=== PATIENT | female | born 1990 | race Caucasian/White ===

== ENCOUNTER 2017-01-09 16:43 | Inpatient (IN) | payer OTHER ==
[~2017-01-09] VITALS: Ht 180.3 cm; Wt 83.0 kg
[~2017-01-09 16:43] MED LIST: SETLAKIN 0.151 EACH PO
[2017-01-09] MEDS ORDERED: ALPRAZOLAM0.5 MG PO (17:01)
[2017-01-09] MEDS ORDERED: VENLAFAXINE HCL75 M1 PO (17:01)
[2017-01-09] MEDS ORDERED: MULTIVITAMINS1 EAC7 PO (17:02)
--- NOTE | 2017-01-09 20:53 | NUR ---
PT ADMITTED FROM ED AT 1950 PER STRETCHER. ABLE TO STAND AND MOVE FROM STRETCHER TO BED. STATES NO DIZZYNESS. DENIES ANY DISCOMFORT. AMB TO BR AT ABOUT 2030 TO VOID 180ML URINE. HR UP TO 120'S WITH AMB. BOYFRIEND IN ROOM. DR ROCHE AWARE OF INC IN HR WITH AMB. DURING ADMISSION PT ADMITTED TO DRINKING 5-7 OR MORE DRINKS OF VODKA 4-5 TIMES PER WEEK. ADIVED PT THAT DRINKING LIKE THAT COULD DECREASE MAGNESIUM LEVEL AND ALSO COULD INTERACT WITH EFFEXOR.
--- NOTE | 2017-01-09 23:37 | NUR ---
GIVEN PO KCL WITH CRACKERS, PT JULIETTE WELL AND GIVEN SANDWICH BOX. AMB TO BR HR UP TO 119 WITH AMB, PT STATES SHE IS FEELING BETTER EVEN WHEN UP.
--- NOTE | 2017-01-10 01:26 | NUR ---
RESTING. BOYFRIEND AT BEDSIDE.
--- NOTE | 2017-01-10 02:39 | NUR ---
HAS NOT SLEPT, CONT TO HAVE RIVERA 6/10 GIVEN 500MG TYLENOL. AMB TO BR, HR TO 103 WHILE UP.
--- NOTE | 2017-01-10 04:38 | NUR ---
DOZING SOME, AWAKENED WHEN IV PUMP ALARMED. NO C/O.
--- NOTE | 2017-01-10 06:26 | NUR ---
RESTING NO CHANGE.
--- NOTE | 2017-01-10 06:47 | NUR ---
AMB TO BR TO VOID, JULIETTE WELL EXCEPT STILL BECOMES TACHYCARDIC WITH AMBULATION UP TO 120. IS HUNGRY, GIVEN MENU.
--- NOTE | 2017-01-10 08:17 | NUR ---
BEDSIDE REPORT RECEIVED FROM QUINCY LOMAS. PT RESTING, SITTING UP IN BED UPON INITIAL ASSESSMENT. PT'S SIGNIFICANT OTHER AT BEDSIDE. PT REPORTS THAT SHE IS FEELING MUCH BETTER COMPARED TO YESTERDAY. PT HAS BEEN VOIDING QUANTITY SUFFICIENT AMOUNTS AND NOTES THAT SHE NEEDS TO GET UP SOON TO VOID AGAIN. ORTHOSTATIC VITAL SIGNS DUE BID. IVF CONTINUE AT 125 ML/HR. ASSESSMENT COMPLETE. PT'S BP NOTED TO BE ELEVATED THIS AM WITH A DIASTOLIC OF 105 AND 108. WILL CONTINUE TO MONITOR.
--- NOTE | 2017-01-10 10:07 | NUR ---
AMBULATED TO BR. DENIES DIZZINESS.
--- NOTE | 2017-01-10 10:15 | NUR ---
MED REC COMPLETE WITH PATIENT AND MOTHER INTERVIEW.
--- NOTE | 2017-01-10 11:47 | NUR ---
DR. ROCHE IN TO SEE PATIENT AT THIS TIME. PT RESTING IN BED.
[2017-01-10] MEDS ORDERED: NICORETTE4 M2 BUCCAL (11:51)
[2017-01-10] MEDS ORDERED: FAMOTIDINE40 MG PO (11:52)
[2017-01-10] MEDS ORDERED: CALCIUM 600 +1 EA13 PO (11:54)
--- NOTE | 2017-01-10 11:57 | NUR ---
PATIENT WILL BE DISCHARGED HOME TODAY WITH A NEW PRESCRIPTION. PATIENT GETTING UP AND GETTING DRESSED AT THIS TIME. CONTINUE TO MONITOR.
[2017-01-10] MEDS ORDERED: METRONIDAZOLE500 MG PO (15:57)
[2017-01-11] MEDS ORDERED: CALCIUM 600 +1 EA13 PO (12:43)
== END 2017-01-10 12:45 | disposition home or self-care (01) | DRG 683 ==
LOC: ED 16:43 → CCU 19:27
PROVIDERS: ADMIT Internal Medicine
DX: N17.9 Acute kidney failure, unspecified (principal); E87.2 Acidosis; N18.2 Chronic kidney disease, stage 2 (mild); E86.0 Dehydration; E83.42 Hypomagnesemia; R11.2 Nausea with vomiting, unspecified; R19.7 Diarrhea, unspecified; E87.6 Hypokalemia; R55 Syncope and collapse; I95.9 Hypotension, unspecified; E87.8 Other disorders of electrolyte and fluid balance, not elsewhere classified; K29.00 Acute gastritis without bleeding; D69.59 Other secondary thrombocytopenia; E80.6 Other disorders of bilirubin metabolism; F32.9 Major depressive disorder, single episode, unspecified; F41.9 Anxiety disorder, unspecified; F10.10 Alcohol abuse, uncomplicated; F17.210 Nicotine dependence, cigarettes, uncomplicated; Z60.8 Other problems related to social environment
CPT/HCPCS: 36415; 80053; 82010; 82306; 82570; 82607; 82746; 82784; 83516; 83630; 83735; 83993; 84133; 84300; 84302; 84703; 85025; 87045; 87046; 87177; 87205; 87209; 87493; 96361; 96365; 96366; 96375; 99285; 99406; J2405; J3475; J3480; J7030; J7120

== ENCOUNTER 2018-09-24 17:14 | Emergency (ER) | payer OTHER ==
[~2018-09-24] VITALS: Ht 180.3 cm; Wt 83.0 kg
--- OUTSIDE RECORDS SUMMARY | ~2018-09-24 | XMS | Clinical Summary ---
Demographics + + + | Address | [address] | | | [place] [address] | + + + | Home Phone | | + + + | Preferred Language | Unknown | + + + | Marital Status | Unknown | + + + | Latter Day Affiliation | Unknown | + + + | Race | Unknown | + + + | Ethnic Group | Unknown | + + + Author + + + | Author | [facility] | | | and [place] | + + + | Organization | [facility] | | | and [place] | + + + | Address | Unknown | + + + | Phone | Unavailable | + + + Support + + +---------+ + | Name | Relationship | Address | Phone | + + +---------+ + | Michael Ware Jr | ECON | Unknown | | + + +---------+ + | NéstorRobyn | ECON | Unknown | | + + +---------+ + Care Team Providers + +------+ + | Care Senior Mechanical Design Engineer Name | Role | Phone | + +------+ + | Abdiel Owens DO | PP | Unavailable | + +------+ + Allergies No Known [...] | 12/2 | | Activ | | (KLOR-CON) 10 [...] + +---------+ + | Alcohol Use | Drinks/We | oz/Week | Comments | | | ek | | | + + +---------+ + | Yes [...] Filed Vital Signs + + + + | Vital Sign | Reading | Time Taken | + + + + | Blood Pressure | 147/99 | 04/26/20172099 PST | + + + + | Pulse | 105 | 04/26/20172099 PST | + + + + | Temperature | 36.1 C (97 F) | 04/26/2017 1543 PST | + + + + | Respiratory Rate | 18 | 04/26/20172099 PST | + + + + | Oxygen Saturation | 99% | 04/26/2017 2100 PST | + + + + | Inhaled Oxygen | - | - | | Concentration | | | + + + + | Weight | 80.5 kg (177 lb 7.5 | 04/24/2017 0115 PST | | | oz) | | + + + + | Height | 167.6 cm (5' 6") | 04/23/20172249 PST | + + + + | Body Mass Index | 28.64 | 04/23/20172249 PST | + + + + Plan of Treatment [...] Vaccine: Influenza | | | | | (Season Ended) | 9 | | | + + [...] | | + +--------+ +--------+ +---------+------+ | [facility] | PHP | [phone] | 04/30/19 | [phone] | | PPO | | PLAN | PERSON | | 16-Pre | 5 | | | | | [place] | | sent | | | | | | OPEN | | | | | | | | OPTION | | | | | | + +--------+ +--------+ +---------+------+ | [facility] | PHP | [phone] | 04/30/19 | [phone] | | PPO | | PLAN | [...] +--------+ + + | Candis Palm | Person | Self | [birth year] | [address] | | [place]wetha | francisco/Oscar | | 1990 | [id number] | [place] [address] | | | brianna | | | 9 (Home) | | + +--------+ +--------+ + + Advance Directives Patient has advance care planning documents, and code status on file. For more information, please contact:[facility] and [place] [address] + + + + + | Code Status | Date | Date | Comments | | | Activated | Inactivated | | + + + + + | Full Code | 04/24/2017 | 04/26/2017 | | | | 1:17 | 23:44 | | + + + + +
--- OUTSIDE RECORDS SUMMARY | ~2018-09-24 | XMS | Clinical Summary ---
Demographics + + + | Address | [address] | | | [place] [address] | + + + | Home Phone | | + + + | Preferred Language | Unknown | + + + | Marital Status | Unknown | + + + | Mormon Affiliation | Unknown | + + + | Race | Unknown | + + + | Ethnic Group | Unknown | + + + Author + + + | Author | [facility] | | | and [place] | + + + | Organization | [facility] | | | and [place] [...] Team Providers + +------+ + | Care Nicker Name | Role | Phone | + [...] +---------+------+ | [facility] | PHP | [phone] | 04/30/19 | [phone] | | PPO | | PLAN | PERSON | | 16-Pre | 5 | | | | | [place] | | sent | | | | | | OPEN | | | | | | | | OPTION | | | | | | + +--------+ +--------+ +---------+------+ | [facility] | PHP | [phone] | 04/30/19 | [phone] | | PPO | | PLAN | [...] | 1990 | [id number] | [place] [address] | | | [place]anna | | | 9 (Home) | | + +--------+ +--------+ + + Advance Directives Patient has advance care planning documents, and code status on file. For more information, please contact:[facility] and [place] [address] + + + + + | Code Status | Date | Date | Comments | | | Activated | Inactivated | | + + + + + | Full Code | 04/24/2017 | 04/26/2017 | | | | 1:17 | 23:44 | | + + + + +
[~2018-09-24 17:14] MED LIST changes: +ALPRAZOLAM0.5 MG PO; +CALCIUM 600 +1 EA13 PO; +FAMOTIDINE40 MG PO; +METRONIDAZOLE500 MG PO; +MULTIVITAMINS1 EAC7 PO; +NICORETTE4 M2 BUCCAL; +VENLAFAXINE HCL75 M1 PO
[2018-09-24] MEDS ORDERED: COZAAR25 MG PO (17:27)
[2018-09-24] MEDS ORDERED: K-TAB ER20 MEQ PO (17:27)
--- NOTE | 2018-09-25 16:17 | EKG ---
[facility] [address] [facility] [place], [place] [address] Signed Sinus tachycardia Otherwise normal ECG No previous ECGs available Confirmed by JYOTI AVILA MD ([id number]) on 09/25/2018 4:17:30 PM Electronically Signed By: JYOTI AVILA MD 09/25/18 1617 PATIENT NAME: JULES BRITO Electrocardiogram DATE OF : [birth year] PHYSICIAN: JYOTI AVILA MD REPORT #: [id number] REPORT IS CONFIDENTIAL AND NOT TO BE RELEASED WITHOUT AUTHORIZATION
== END 2018-09-24 23:22 | disposition home or self-care (01) ==
LOC: ED 17:14
DX: E86.0 Dehydration (principal); F10.20 Alcohol dependence, uncomplicated; F17.200 Nicotine dependence, unspecified, uncomplicated; Z79.899 Other long term (current) drug therapy
CPT/HCPCS: 80053; 81001; 83690; 83735; 84703; 85025; 93005; 93010; 96365; 96375; 96376; 99283-25; G0480; J2060; J3411; J3475; J7030

== ENCOUNTER → 2019-03-04 | Emergency (ER) | payer OTHER ==
[~2019-03-04] VITALS: Ht 180.3 cm; Wt 74.8 kg
[~2019-03-04] MED LIST changes: +CITALOPRAM HBR10 MG PO; +COZAAR25 MG PO; +K-TAB ER20 MEQ PO; +MAGNESIUM200 MG PO; +XANAX0.5 MG PO
--- OUTSIDE RECORDS SUMMARY | ~2019-03-04 | XMS | Clinical Summary ---
Demographics + + + | Address | [address] | | | [place] [address] | + + + | Home Phone | | + + + | Preferred Language | Unknown | + + + | Marital Status | Unknown | + + + | Denominational Affiliation | Unknown | + + + | Race | Unknown | + + + | Ethnic Group | Unknown | + + + Author + + + | Author | [facility] | | | and [place] | + + + | Organization | [facility] | | | and [place] [...] Team Providers + +------+ + | Care Calibration Technician Name | Role | Phone | + +------+ + | Abdiel Owens DO | PCP | Unavailable | + +------+ + Allergies [...] +---------+------+ | [facility] | PHP | [phone] | 04/30/19 | [phone] | | PPO | | PLAN | PERSON | | 16-Pre | 5 | | | | | [place] | | sent | | | | | | OPEN | | | | | | | | OPTION | | | | | | + +--------+ +--------+ +---------+------+ | [facility] | PHP | [phone] | 04/30/19 | [phone] | | PPO | | PLAN | [...] | 1990 | [id number] | [place] [address] | | | [place] | | | 9 (Home) | | + +--------+ +--------+ + + Advance Directives Patient has advance care planning documents, and code status on file. For more information, please contact:[facility] [address] and [place] [address] + + + + + | Code Status | Date | Date | Comments | | | Activated | Inactivated | | + + + + + | Full Code | 04/24/2017 | 04/26/2017 | | | | 1:17 | 23:44 | | + + + + +
--- OUTSIDE RECORDS SUMMARY | ~2019-03-04 | XMS | Clinical Summary ---
Demographics + + + | Address | [address] | | | [place] [address] | + + + | Home Phone | | + + + | Preferred Language | Unknown | + + + | Marital Status | Unknown | + + + | Religion Affiliation | Unknown | + + + | Race | Unknown | + + + | Ethnic Group | Unknown | + + + Author + + + | Author | [facility] | | | and [place] | + + + | Organization | [facility] | | | and [place] [...] Team Providers + +------+ + | Care Materials Intern Name | Role | Phone | + [...] +---------+------+ | [facility] | PHP | [phone] | 04/30/19 | [phone] | | PPO | | PLAN | PERSON | | 16-Pre | 5 | | | | | [place] | | sent | | | | | | OPEN | | | | | | | | OPTION | | | | | | + +--------+ +--------+ +---------+------+ | [facility] | PHP | [phone] | 04/30/19 | [phone] | | PPO | | PLAN | [...] | 1990 | [id number] | [place] [address] | | | [place] | | | 9 (Home) | | + +--------+ +--------+ + + Advance Directives Patient has advance care planning documents, and code status on file. For more information, please contact:[facility] and [place] [address] + + + + + | Code Status | Date | Date | Comments | | | Activated | Inactivated | | + + + + + | Full Code | 04/24/2017 | 04/26/2017 | | | | 1:17 | 23:44 | | + + + + +
--- NOTE | 2019-03-05 16:04 | EKG ---
[facility] [address] [facility] [place], [place] [address] Signed Sinus tachycardia Otherwise normal ECG When compared with ECG of 24-SEP-2018 17:23, No significant change was found Confirmed by KARINA LOUIS DO ([id number]) on 03/05/2019 4:04:51 PM Electronically Signed By: KARINA LOUIS DO 03/05/19 1604 PATIENT NAME: JULES BRITO Electrocardiogram DATE OF : [birth year] PHYSICIAN: KARINA LOUIS DO REPORT #: [id number] REPORT IS CONFIDENTIAL AND NOT TO BE RELEASED WITHOUT AUTHORIZATION
== END ==
LOC: ED 21:10
DX: E83.42 Hypomagnesemia (principal); F17.200 Nicotine dependence, unspecified, uncomplicated; Z79.899 Other long term (current) drug therapy
CPT/HCPCS: 80053; 81001; 83735; 84703; 85025; 93005; 93010; 96374; 96375; 96376; 99284-25; G0480; J2060; J2405; J2550; J3475; J7030

== ENCOUNTER 2019-03-29 16:18 | Inpatient (IN) | payer OTHER ==
[~2019-03-29] VITALS: Ht 182.9 cm; Wt 79.4 kg
--- OUTSIDE RECORDS SUMMARY | ~2019-03-29 | XMS | Encounter Summary ---
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 ECGNo previous ECGs | | | | | | availableConfirmed by | | | | | | EDUARDO REINOSO, JOVITA ([id number]) | | | | | | on 04/24/2017 7:05:15 AM | | | | | | | | | | + + + + + + + + | Specimen | + + | | + + + + + | Narrative | Performed At | + + + | | | + + + + +---------+ + + | Performing | Address | City/State/Zipcode | Phone Number | | Organization | | | | + +---------+ + + | [facility] | | | | + +---------+ + + Extra Blue Top Tube (04/23/2017 11:07 PM PST) + +-------+ + + + | Component | Value | Ref Range | Performed | Pathologist | | | | | At | Signature | + +-------+ + + + | Extra Blue | Done | | [facility] | | | Top Tube | | | [facility] | | | | | | [facility] | | | | | | CENTER - | | | | | | LABORATORY | | + +-------+ + + + + + | Specimen | + + | Blood | + + + + + + + | Performing | Address | City/State/Zipcode | Phone Number | | Organization | | | | + + + + + | [facility] | [address] | [place] | [phone] | | [facility] | | [address] | | | - LABORATORY | | | | + + + + + Extra Green Top Tube (04/23/2017 11:07 PM PST) + +-------+ + + + | Component | Value | Ref Range | Performed | Pathologist | | | | | At | Signature | + +-------+ + + + | Extra Green | Done | | [facility] | | | Top Tube | | | [facility] | | | | | [facility] | | | | | | CENTER - | | | | | | LABORATORY | | + +-------+ + + + + + | Specimen | + + | Blood | + + + + + + + | Performing | Address | City/State/Zipcode | Phone Number | | Organization | | | | + + + + + | [facility] | [address] | [place] | [phone] | | [facility] | | [address] | | | - LABORATORY | | | | + + + + + , Serum, Qual (04/23/2017 11:07 PM PST) + + + + + + | Component | Value | Ref Range | Performed | Pathologist | | | | | At | Signature | + + + + + + | hCG Screen, | Negative | Negative | [facility] | | | Serum | | | [facility] | | | | | | MEDICAL | | | | | | CENTER - | | | | | | LABORATORY | | + + + + + + + + | Specimen | + + | Blood | + + + + + + + | Performing | Address | City/State/Zipcode | Phone Number | | Organization | | | | + + + + + | [facility] | [address] | [place] | [phone] | | [facility] | | [address] | | | - LABORATORY | | | | + + + + + Magnesium (04/23/2017 11:07 PM PST) + +---------+ + + + | Component | Value | Ref Range | Performed | Pathologist | | | | | At | Signature | + +---------+ + + + | Magnesium | 0.5 (L) | 1.8 - 2.5 mg/dL | [facility] | | | | | | [facility] | | | | | | MEDICAL | | | | | | CENTER - | | | | | | LABORATORY | | + +---------+ + + + + + | Specimen | + + | Blood | + + + + + + + | Performing | Address | City/State/Zipcode | Phone Number | | Organization | | | | + + + + + | [facility] | [address] | [place] | [phone] | | [facility] | | [address] | | | - LABORATORY | | | | + + + + + Ethanol (04/23/2017 11:07 PM PST) + +-------+ + + + | Component | Value | Ref Range | Performed | Pathologist | | | | | At | Signature | + +-------+ + + + | ALCOHOL, | <5 | <400 mg/dL | [facility] | | | SERUM/PLASM | | | [facility] | | | A | | | MEDICAL | | | | | | CENTER - | | | | | | LABORATORY | | + +-------+ + + + + + | Specimen | + + | Blood | + + + + + + + | Performing | Address | City/State/Zipcode | Phone Number | | Organization | | | | + + + + + | [facility] | [address] | [place] | [phone] | | [facility] | | [address] | | | - LABORATORY | | | | + + + + + Lipase (04/23/2017 11:07 PM PST) + +-------+ + + + | Component | Value | Ref Range | Performed | Pathologist | | | | | At | Signature | + +-------+ + + + | Lipase | 32 | 0 - 60 U/L | [facility] | | | | | | [facility] | | | | | | MEDICAL | | | | | | CENTER - | | | | | | LABORATORY | | + +-------+ + + + + + | Specimen | + + | Blood | + + + + + + + | Performing | Address | City/State/Zipcode | Phone Number | | Organization | | | | + + + + + | [facility] | [address] | [place] | [phone] | | [facility] | | [address] | | | - LABORATORY | | | | + + + + + Comprehensive Metabolic Panel (04/23/2017 11:07 PM PST) + + + + + + | Component | Value | Ref Range | Performed | Pathologist | | | | | At | Signature | + + + + + + | Na | 132 (L) | 136 - 149 | [facility] | | | | | mmol/L | [facility] | | | | | | MEDICAL | | | | | | CENTER - | | | | | | LABORATORY | | + + + + + + | K | 2.1 (LL)Comment: | 3.5 - 5.1 | [facility] | | | | Critical Result called | mmol/L | [facility] | | | | to and read back by | | MEDICAL | | | | Samira Chandler on | | CENTER - | | | | 04/23/2017 at 23:32 by | | LABORATORY | | | | Mary Lemus. | | | | + + + + + + | Cl | 90 (L) | 98 - 109 mmol/L | [facility] | | | | | | [facility] | | | | | | MEDICAL | | | | | | CENTER - | | | | | | LABORATORY | | + + + + + + | CO2 | 26 | 24 - 31 mmol/L | [facility] | | | | | | [facility] | | | | | | MEDICAL | | | | | | CENTER - | | | | | | LABORATORY | | + + + + + + | Anion Gap | 16 | 3 - 16 mmol/L | [facility] | | | | | | [facility] | | | | | | MEDICAL | | | | | | CENTER - | | | | | | LABORATORY | | + + + + + + | Glucose | 86 | 70 - 109 mg/dL | [facility] | | | | | | [facility] | | | | | | MEDICAL | | | | | | CENTER - | | | | | | LABORATORY | | + + + + + + | BUN | 5 (L) | 7 - 18 mg/dL | [facility] | | | | | | [facility] | | | | | | MEDICAL | | | | | | CENTER - | | | | | | LABORATORY | | + + + + + + | Creatinine | 0.82 | 0.60 - 1.30 | [facility] | | | | | mg/dL | [facility] | | | | | | MEDICAL | | | | | | CENTER - | | | | | | LABORATORY | | + + + + + + | eGFR if not | >60Comment: GLOMERULAR | >=60 | [facility] | | | | FILTR[facility] | mL/min/1.73m2 | [facility] | | | [place] | RATE,ESTIMATED | | MEDICAL | | | | mL/min/1.77z3Mxhs than | | CENTER - | | | | 60 Chronic kidney | | LABORATORY | | | | disease,if found over a | | | | | | 3-month period.Less than | | | | | | 15 Kidney failureFor | | | | | | | | | | | | Americans,multiply the | | | | | | calculated GFR by 1.21. | | | | | | | | | | + + + + + + | Calcium | 6.8 (L) | 8.3 - 10.5 | [facility] | | | | | mg/dL | [facility] | | | | | | MEDICAL | | | | | | CENTER - | | | | | | LABORATORY | | + + + + + + | Albumin | 3.7 | 3.2 - 5.0 g/dL | [facility] | | | | | | [facility] | | | | | | MEDICAL | | | | | | CENTER - | | | | | | LABORATORY | | + + + + + + | Bilirubin | 1.3Comment: This is an | 0.1 - 1.5 mg/dL | [facility] | | | Total | appended report. These | | [facility] | | | | results have been | | MEDICAL | | | | appended to a previously | | CENTER - | | | | preliminary verified | | LABORATORY | | | | report. | | | | + + + + + + | Total | 7.0 | 6.0 - 7.8 g/dL | [facility] | | | Protein | | | [facility] | | | | | | MEDICAL | | | | | | CENTER - | | | | | | LABORATORY | | + + + + + + | AST | 67 (H)Comment: This is | 10 - 42 U/L | [facility] | | | | an appended report. | | [facility] | | | | These results have been | | MEDICAL | | | | appended to a previously | | CENTER - | | | | preliminary verified | | LABORATORY | | | | report. | | | | + + + + + + | ALT | 26Comment: This is an | 6 - 45 U/L | [facility] | | | | appended report. These | | [facility] | | | | results have been | | MEDICAL | | | | appended to a previously | | CENTER - | | | | preliminary verified | | LABORATORY | | | | report. | | | | + + + + + + | Alkaline | 44Comment: This is an | 40 - 110 U/L | [facility] | | | Phosphatase | appended report. These | | [facility] | | | | results have been | | MEDICAL | | | | appended to a previously | | CENTER - | | | | preliminary verified | | LABORATORY | | | | report. | | | | + + + + + + | Globulin | 3.3 | 2.1 - 3.8 g/dL | [facility] | | | | | | [facility] | | | | | | MEDICAL | | | | | | CENTER - | | | | | | LABORATORY | | + + + + + + | Albumin/Radha | 1.1 | 0.8 - 2.0 | [facility] | | | bulin Ratio | | | [facility] | | | | | | MEDICAL | | | | | | CENTER - | | | | | | LABORATORY | | + + + + + + | BUN/Creatin | 6.1 | | [facility] | | | ine Ratio | | | [facility] | | | | | | MEDICAL | | | | | | CENTER - | | | | | | LABORATORY | | + + + + + + + + | Specimen | + + | Blood | + + + + + + + | Performing | Address | City/State/Zipcode | Phone Number | | Organization | | | | + + + + + | [facility] | [address] | [place] | [phone] | | [facility] | | [address] | | | - LABORATORY | | | | + + + + + CBC with Differential (04/23/2017 11:07 PM PST) + + + + + + | Component | Value | Ref Range | Performed | Pathologist | | | | | At | Signature | + + + + + + | WBC | 6.0 | 4.0 - 11.0 K/uL | [facility] | | | | | | [facility] | | | | | | MEDICAL | | | | | | CENTER - | | | | | | LABORATORY | | + + + + + + | RBC | 4.00 | 3.70 - 5.20 | [facility] | | | | | M/uL | [facility] | | | | | | MEDICAL | | | | | | CENTER - | | | | | | LABORATORY | | + + + + + + | Hemoglobin | 13.1 | 11.5 - 16.0 | [facility] | | | | | g/dL | [facility] | | | | | | MEDICAL | | | | | | CENTER - | | | | | | LABORATORY | | + + + + + + | Hematocrit | 38.0 | 34.0 - 47.0 % | [facility] | | | | | | [facility] | | | | | | MEDICAL | | | | | | CENTER - | | | | | | LABORATORY | | + + + + + + | MCV | 95.0 | 83.0 - 101.0 fL | [facility] | | | | | | [facility] | | | | | | [facility] | | | | | | CENTER - | | | | | | LABORATORY | | + + + + + + | MCH | 32.6 | 28.0 - 35.0 pg | [facility] | | | | | | [facility] | | | | | | MEDICAL | | | | | | CENTER - | | | | | | LABORATORY | | + + + + + + | MCHC | 34.3 | 32.0 - 36.0 | [facility] | | | | | g/dL | [facility] | | | | | | MEDICAL | | | | | | CENTER - | | | | | | LABORATORY | | + + + + + + | RDW-CV | 15.3 (H) | <15.0 % | [facility] | | | | | | [facility] | | | | | | MEDICAL | | | | | | CENTER - | | | | | | LABORATORY | | + + + + + + | Platelet | 179 | 140 - 440 K/uL | [facility] | | | Count | | | [facility] | | | | | | MEDICAL | | | | | | CENTER - | | | | | | LABORATORY | | + + + + + + | MPV | 7.3 | fL | [facility] | | | | | | [facility] | | | | | | MEDICAL | | | | | | CENTER - | | | | | | LABORATORY | | + + + + + + | % | 71.9 | 45.0 - 82.0 % | [facility] | | | Neutrophils | | | [facility] | | | | | | MEDICAL | | | | | | CENTER - | | | | | | LABORATORY | | + + + + + + | % | 14.5 (L) | 20.0 - 45.0 % | [facility] | | | Lymphocytes | | | [facility] | | | | | | MEDICAL | | | | | | CENTER - | | | | | | LABORATORY | | + + + + + + | % Monocytes | 13.2 (H) | 4.0 - 12.0 % | [facility] | | | | | | [facility] | | | | | | MEDICAL | | | | | | CENTER - | | | | | | LABORATORY | | + + + + + + | % | 0.1 | 0.0 - 5.0 % | [facility] | | | Eosinophils | | | [facility] | | | | | | MEDICAL | | | | | | CENTER - | | | | | | LABORATORY | | + + + + + + | % Basophils | 0.3 | 0.0 - 1.0 % | [facility] | | | | | | [facility] | | | | | | MEDICAL | | | | | | CENTER - | | | | | | LABORATORY | | + + + + + + | Absolute | 4.30 | 1.80 - 8.50 | [facility] | | | Neutrophils | | K/uL | [facility] | | | | | | MEDICAL | | | | | | CENTER - | | | | | | LABORATORY | | + + + + + + | Absolute | 0.90 | 0.60 - 3.20 | [facility] | | | Lymphocytes | | K/uL | [facility] | | | | | | MEDICAL | | | | | | CENTER - | | | | | | LABORATORY | | + + + + + + | Absolute | 0.80 | 0.00 - 1.00 | [facility] | | | Monocytes | | K/uL | [facility] | | | | | | MEDICAL | | | | | | CENTER - | | | | | | LABORATORY | | + + + + + + | Absolute | 0.00 | 0.00 - 0.40 | [facility] | | | Eosinophils | | K/uL | [facility] | | | | | | MEDICAL | | | | | | CENTER - | | | | | | LABORATORY | | + + + + + + | Absolute | 0.00 | 0.00 - 0.10 | [facility] | | | Basophils | | K/uL | [facility] | | | | | | MEDICAL | | | | | | CENTER - | | | | | | LABORATORY | | + + + + + + + + | Specimen | + + | Blood | + + + + + + + | Performing | Address | City/State/Zipcode | Phone Number | | Organization | | | | + + + + + | [facility] | [address] | [place] | [phone] | | [facility] | | [address] | | | - LABORATORY | | | | + + + + + documented in this encounter Visit Diagnoses + + | Diagnosis | + + | Hypokalemia - Primary Hypopotassemia | + + | Hypomagnesemia Disorders of magnesium metabolism | + + | Hypocalcemia | + + | Prolonged Q-T interval on ECG Nonspecific abnormal electrocardiogram (ECG) (EKG) | + + | Electrocardiogram showing T wave abnormalities | + + | Electrolyte depletion Electrolyte and fluid disorders not elsewhere classified | + + | Seizure (HCC) Other convulsions | + + | Hyperkalemia Hyperpotassemia | + + documented in this encounter Administered Medications + +--------+ +--------+------+------+ | Medication Order | MAR | Action | Dose | Rate | Site | | | Action | Date | | | | + +--------+ +--------+------+------+ | acetaminophen (TYLENOL) tablet | Given | 04/24/20 | 650 mg | | | | 650 mg 650 mg, Oral, EVERY 4 | | 17 5:33 | | | | | HOURS PRN, Pain, or fever >= 38.3 | | AM PST | | | | | C (101.5 F), Starting Tue | | | | | | | 04/24/17 at 0117 | | | | | | + +--------+ +--------+------+------+ +---+---+ | | | +---+---+ + +-------+ +------+---+---+ | ALPRAZolam (XANAX) tablet 1 mg | Given | 04/26/20 | 1 mg | | | | 1 mg, Oral, ONCE, [facility] 04/26/17 | | 17 1:32 | | | | | at 1315, For 1 dose | | PM PST | | | | + +-------+ +------+---+---+ +---+---+ | | | +---+---+ + +---------+ +---+-------+---+ | dextrose 5% and sodium chloride | New Bag | 04/24/20 | | 125 | | | 0.45% (D5 1/2 NS) 1,000 mL with | | 17 3:51 | | mL/hr | | | potassium chloride 40 mEq | | PM PST | | | | | infusion at 125 mL/hr, | | | | | | | Intravenous, CONTINUOUS, Starting | | | | | | | 04/24/17 at 1315 | | | | | | + +---------+ +---+-------+---+ +---+---+ | | | +---+---+ + +---------+ +---+ +---+ | dextrose 5% and sodium chloride | New Bag | 04/26/20 | | 75 mL/hr | | | 0.45% with KCl 40 mEq/L (D5 1/2 | | 17 1:05 | | | | | NS + KCL 40) infusion at 75 | | AM PST | | | | | mL/hr, Intravenous, CONTINUOUS, | | | | | | | Starting 04/24/17 at 2300 | | | | | | + +---------+ +---+ +---+ +---------+ +---+ +---+ | New Bag | 04/25/20 | | 75 mL/hr | | | | 17 2:16 | | | | | | AM PST | | | | +---------+ +---+ +---+ +---+---+ | | | +---+---+ + + + + +---+---+ | levonorgestrel-ethinyl | Given by | 04/25/20 | 1 tablet | | | | estradiol 0.15-0.03 MG per tablet | Other | 17 9:00 | | | | | 1 tablet - POM 1 tablet, Oral, | | PM PST | | | | | NIGHTLY, First dose on Sun | | | | | | | 04/25/17 at 0015, PT's OWN MED. | | | | | | | In Lock Box or Pyxis Patient | | | | | | | Specific Bin. RETURN TO PATIENT | | | | | | | AT DISCHARGE. Verified #6 by | | | | | | | Pharmacist Vikram Bustos, | | | | | | | PharmD 04/25/2017, , | | | | | | + + + + +---+---+ +-------+ + +---+---+ | Given | 04/25/20 | 1 tablet | | | | | 17 2:15 | | | | | | AM PST | | | | +-------+ + +---+---+ +---+---+ | | | +---+---+ + +-------+ +------+---+---+ | loperamide (IMODIUM) capsule 2 | Given | 04/25/20 | 2 mg | | | | mg 2 mg, Oral, EVERY 2 HOURS | | 17 8:20 | | | | | PRN, Diarrhea, May give 2 mg | | PM PST | | | | | after every diarrheal stool up to | | | | | | | 4 doses in 24 hours, Starting | | | | | | | 04/25/17 at 1734 | | | | | | + +-------+ +------+---+---+ +---+---+ | | | +---+---+ + +-------+ +--------+---+---+ | magnesium oxide (MAG-OX) tablet | Given | 04/26/20 | 400 mg | | | | 400 mg 400 mg, Oral, 2 TIMES | | 17 12:01 | | | | | DAILY, First dose on [facility] 04/26/17 | | PM PST | | | | | at 1045 | | | | | | + +-------+ +--------+---+---+ +---+---+ | | | +---+---+ + +-------+ +--------+---+---+ | magnesium oxide (MAG-OX) tablet | Given | 04/26/20 | 400 mg | | | | 400 mg 400 mg, Oral, 3 TIMES | | 17 8:58 | | | | | DAILY, First dose (after last | | PM PST | | | | | modification) on [facility] 04/26/17 at | | | | | | | 2100 | | | | | | + +-------+ +--------+---+---+ +---+---+ | | | +---+---+ + +-------+ +--------+---+---+ | magnesium oxide (MAG-OX) tablet | Given | 04/24/20 | 800 mg | | | | 800 mg 800 mg, Oral, ONCE, Sun | | 17 12:00 | | | | | 04/23/17 at 2345, For 1 dose | | AM PST | | | | + +-------+ +--------+---+---+ +---+---+ | | | +---+---+ + + + +-----+ +---+ | magnesium sulfate 2 g/50 mL | Restarte | 04/24/20 | 2 g | 25 mL/hr | | | IVPB 2 g 2 g, Intravenous, | d | 17 12:50 | | | | | Administer over 120 Minutes, | | AM PST | | | | | ONCE, 04/23/17 at 2345, For 1 | | | | | | | dose, Maximum recommended | | | | | | | infusion rate = 1 gram/hour., | | | | | | + + + +-----+ +---+ +---------+ +-----+ +---+ | New Bag | 04/24/20 | 2 g | 25 mL/hr | | | | 17 12:01 | | | | | | AM PST | | | | +---------+ +-----+ +---+ +---+---+ | | | +---+---+ + +---------+ +-----+ +---+ | magnesium sulfate 2 g/50 mL | New Bag | 04/24/20 | 2 g | 25 mL/hr | | | IVPB 2 g 2 g, Intravenous, | | 17 1:31 | | | | | Administer over 120 Minutes, | | PM PST | | | | | ONCE, 04/24/17 at 1315, For 1 | | | | | | | dose, Infuse over 2 hours., | | | | | | + +---------+ +-----+ +---+ +---+---+ | | | +---+---+ + +---------+ +-----+ +---+ | magnesium sulfate 2 g/50 mL | New Bag | 04/24/20 | 2 g | 25 mL/hr | | | IVPB 2 g 2 g, Intravenous, | | 17 10:04 | | | | | Administer over 120 Minutes, | | PM PST | | | | | ONCE, [facility] 04/24/17 at 2045, For 1 | | | | | | | dose, Infuse over 2 hours., | | | | | | + +---------+ +-----+ +---+ +---+---+ | | | +---+---+ + +---------+ +-----+ +---+ | magnesium sulfate 2 g/50 mL | New Bag | 04/25/20 | 2 g | 25 mL/hr | | | IVPB 2 g 2 g, Intravenous, | | 17 9:15 | | | | | Administer over 120 Minutes, | | AM PST | | | | | ONCE, [facility] 04/25/17 at 0745, For 1 | | | | | | | dose, Infuse over 2 hours., | | | | | | + +---------+ +-----+ +---+ +---+---+ | | | +---+---+ + +---------+ +-----+ +---+ | magnesium sulfate 2 g/50 mL | New Bag | 04/25/20 | 2 g | 25 mL/hr | | | IVPB 2 g 2 g, Intravenous, | | 17 11:55 | | | | | Administer over 120 Minutes, | | AM PST | | | | | ONCE, [facility] 04/25/17 at 1200, For 1 | | | | | | | dose, Infuse over 2 hours., | | | | | | + +---------+ +-----+ +---+ +---+---+ | | | +---+---+ + +---------+ +-----+ +---+ | magnesium sulfate 4 g/100 mL | New Bag | 04/26/20 | 4 g | 25 mL/hr | | | IVPB 4 g 4 g, Intravenous, | | 17 4:32 | | | | | Administer over 240 Minutes, | | PM PST | | | | | ONCE, [facility] 04/26/17 at 1615, For 1 | | | | | | | dose | | | | | | + +---------+ +-----+ +---+ +---+---+ | | | +---+---+ + +-------+ +-------+---+---+ | metoprolol tartrate (LOPRESSOR) | Given | 04/26/20 | 50 mg | | | | tablet 50 mg 50 mg, Oral, 2 | | 17 8:58 | | | | | TIMES DAILY, First dose on Sun | | PM PST | | | | | 04/25/17 at 0900 | | | | | | + +-------+ +-------+---+---+ +-------+ +-------+---+---+ | Given | 04/26/20 | 50 mg | | | | | 17 9:59 | | | | | | AM PST | | | | +-------+ +-------+---+---+ | Given | 04/25/20 | 50 mg | | | | | 17 8:16 | | | | | | PM PST | | | | +-------+ +-------+---+---+ +---+---+ | | | +---+---+ + +-------+ +------+---+---+ | ondansetron (ZOFRAN ODT) | Given | 04/24/20 | 4 mg | | | | disintegrating tablet 4 mg 4 mg, | | 17 5:33 | | | | | Oral, EVERY 6 HOURS PRN, Nausea, | | AM PST | | | | | Vomiting, Starting Sun04/24/17 | | | | | | | at 0117, First line agent, | | | | | | + +-------+ +------+---+---+ +---+---+ | | | +---+---+ + +-------+ +------+---+---+ | ondansetron (ZOFRAN) injection | Given | 04/23/20 | 4 mg | | | | 4 mg 4 mg, Intravenous, ONCE, | | 17 11:06 | | | | | 04/23/17 at 2255, For 1 dose | | PM PST | | | | + +-------+ +------+---+---+ + +---+ | | | + +---+ | pharmacy consult - POM | | | PHARMACY CONSULT, Starting Sun | | | 04/24/17 at 2316, Pharmacy to | | | dose which medication? Please | | | relabel home Introvale (0.15-0.03 | | | mg tabs) for hospital use to | | | take at home dosing. She has | | | them in her room. | | + +---+ | | | + +---+ + +---------+ +--------+-------+---+ | potassium chloride 10 mEq in | New Bag | 04/23/20 | 10 mEq | 100 | | | sterile water 100 mL IVPB | | 11:40 | | mL/hr | | | mEq, Intravenous, Administer over | | PM PST | | | | | 1 Hours, ONCE, 04/23/17 at | | | | | | | 2340, For 1 dose | | | | | | + +---------+ +--------+-------+---+ +---+---+ | | | +---+---+ + +-------+ +--------+---+---+ | potassium chloride 20 mEq/15 mL | Given | 04/24/20 | 20 mEq | | | | liquid 20 mEq 20 mEq, Oral, | | 17 5:00 | | | | | EVERY 2 HOURS, First dose on e | | PM PST | | | | | 04/24/17 at 1415, For 2 doses, 20 | | | | | | | meq po every 2 hours for 2 | | | | | | | doses, | | | | | | + +-------+ +--------+---+---+ +-------+ +--------+---+---+ | Given | 04/24/20 | 20 mEq | | | | | 17 3:07 | | | | | | PM PST | | | | +-------+ +--------+---+---+ +---+---+ | | | +---+---+ + +-------+ +--------+---+---+ | potassium chloride 20 mEq/15 mL | Given | 04/23/20 | 40 mEq | | | | liquid 40 mEq 40 mEq, Oral, | | 17 11:40 | | | | | ONCE, 04/23/17 at 2340, For 1 | | PM PST | | | | | dose, Give with 4 oz. of water | | | | | | | or other liquid., | | | | | | + +-------+ +--------+---+---+ +---+---+ | | | +---+---+ + +-------+ +--------+---+---+ | potassium chloride 20 mEq/15 mL | Given | 04/25/20 | 40 mEq | | | | liquid 40 mEq 40 mEq, Oral, | | 17 11:51 | | | | | EVERY 2 HOURS, First dose on Wed | | AM PST | | | | | 04/25/17 at 0745, For 2 doses, 20 | | | | | | | meq po every 2 hours for 2 | | | | | | | doses, | | | | | | + +-------+ +--------+---+---+ +-------+ +--------+---+---+ | Given | 04/25/20 | 40 mEq | | | | | 17 7:52 | | | | | | AM PST | | | | +-------+ +--------+---+---+ +---+---+ | | | +---+---+ + +-------+ +--------+---+---+ | potassium chloride 20 mEq/15 mL | Given | 04/25/20 | 40 mEq | | | | liquid 40 mEq 40 mEq, Oral, | | 17 8:20 | | | | | EVERY 2 HOURS, First dose on Sun | | PM PST | | | | | 04/25/17 at 1800, For 2 doses, 20 | | | | | | | meq po every 2 hours for 2 | | | | | | | doses, | | | | | | + +-------+ +--------+---+---+ +-------+ +--------+---+---+ | Given | 04/25/20 | 40 mEq | | | | | 17 5:48 | | | | | | PM PST | | | | +-------+ +--------+---+---+ +---+---+ | | | +---+---+ + +-------+ +--------+---+---+ | potassium chloride 20 mEq/15 mL | Given | 04/26/20 | 40 mEq | | | | liquid 40 mEq 40 mEq, Oral, | | 17 12:01 | | | | | EVERY 2 HOURS, First dose on Sun | | PM PST | | | | | 04/26/17 at 0745, For 2 doses, 20 | | | | | | | meq po every 2 hours for 2 | | | | | | | doses, | | | | | | + +-------+ +--------+---+---+ +-------+ +--------+---+---+ | Given | 04/26/20 | 40 mEq | | | | | 17 9:55 | | | | | | AM PST | | | | +-------+ +--------+---+---+ +---+---+ | | | +---+---+ + +---------+ +--------+-------+---+ | potassium chloride 40 mEq in | New Bag | 04/24/20 | 40 mEq | 130 | | | sodium chloride 0.45% 500 mL IVPB | | 17 12:50 | | mL/hr | | | 40 mEq, Intravenous, Administer | | AM PST | | | | | over 4 Hours, ONCE, 04/24/17 | | | | | | | at 0000, For 1 dose | | | | | | + +---------+ +--------+-------+---+ +---+---+ | | | +---+---+ + +---------+ +--------+-------+---+ | sodium chloride 0.9% (NS) bolus | New Bag | 04/23/20 | 1,000 | 1000 | | | 1,000 mL 1,000 mL, Intravenous, | | 17 11:05 | mLs | mL/hr | | | Administer over 1 Hours, ONCE, | | PM PST | | | | | 04/23/17 at 2255, For 1 dose | | | | | | + +---------+ +--------+-------+---+ +---+---+ | | | +---+---+ + +---------+ +---+-------+---+ | sodium chloride 0.9% (NS) | New Bag | 04/24/20 | | 125 | | | infusion at 125 mL/hr, | | 17 2:21 | | mL/hr | | | Intravenous, CONTINUOUS, Starting | | AM PST | | | | | 04/24/17 at 0145 | | | | | | + +---------+ +---+-------+---+ +---+---+ | | | +---+---+ + +-------+ +-------+---+---+ | venlafaxine (EFFEXOR XR) ER | Given | 04/26/20 | 75 mg | | | | capsule 75 mg 75 mg, Oral, | | 17 9:59 | | | | | DAILY, First dose on Sun04/24/17 | | AM PST | | | | | at 0900, Do not crush or chew. | | | | | | | Capsule may be opened and | | | | | | | contents sprinkled on | | | | | | | applesauce., | | | | | | + +-------+ +-------+---+---+ +-------+ +-------+---+---+ | Given | 04/25/20 | 75 mg | | | | | 17 11:45 | | | | | | AM PST | | | | +-------+ +-------+---+---+ | Given | 04/24/20 | 75 mg | | | | | 17 8:33 | | | | | | AM PST | | | | +-------+ +-------+---+---+ +---+---+ | | | +---+---+ documented in this encounter
--- OUTSIDE RECORDS SUMMARY | ~2019-03-29 | XMS | Clinical Summary ---
Demographics + + + | Address | [address] | | | [place] [address] | + + + | Home Phone | | + + + | Preferred Language | Unknown | + + + | Marital Status | Unknown | + + + | Gnosticism Affiliation | Unknown | + + + | Race | Unknown | + + + | Ethnic Group | Unknown | + + + Author + + + | Author | [facility] | | | and [place] | + + + | Organization | [facility] | | | and [place] [...] Team Providers + +------+ + | Care Data Analyst Etl Developer Name | Role | Phone | + [...] | | | Dtap/Tdap/Td (1 - | 0 | | | | Tdap) | | [...] | | + +--------+ +--------+ +---------+------+ | [facility] | PHP | [id number] | 04/30/19 | [phone] | | PPO | | PLAN | PERSON | | 16-Pre | 5 | | | | | [place] | | sent | | | | | | OPEN | | | | | | | | OPTION | | | | | | + +--------+ +--------+ +---------+------+ | [facility] | 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
--- OUTSIDE RECORDS SUMMARY | ~2019-03-29 | XMS | Encounter Summary ---
Demographics + + + | Address | [address] | | | [place] [address] | + + + | Home Phone | | + + + | Preferred Language | Unknown | + + + | Marital Status | Unknown | + + + | Sikhism Affiliation | Unknown | + + + | Race | Unknown | + + + | Ethnic Group | Unknown | + + + Author + + + | Author | [facility] | | | and [place] | + + + | Organization | [facility] | | | and [place] [...] Team Providers + +------+ + | Care Arson And Bomb Investigator Name | Role | Phone | + [...] + + | 04/23/ | Hospital | [facility] | Dennis De Jesus | Hypokalemia (Primary | | 2017 - | Encounter | [facility] | MD Hammad [address] | Dx); | | | | [address] | [address] | Hypomagnesemia; | | 04/26/ | | [place] [address] | [place] [address] | Hypocalcemia; | | 2017 | | [phone] | [phone] | Prolonged Q-T | | | | | | interval on ECG; | | | | | Deo Malik MD | Electrocardiogram | | | | | [address] | showing T wave | | | | | [place], [place] | abnormalities; | | | | | [address] | Electrolyte | | | | | | depletion; Seizure | | | | | Dalton Fairchild MD | ([facility]) | | | | | [address] | | | | | | [place], [place] | | | | | | [address] | | | | | | | [...] Fairchild MD - 04/26/2017 5:[address] [facility] DISCHARGE SUMMARY Pt. Name/Age/: Jules Palm 27 [...] with [facility] and get assistance applying for [place] [employer] aid. Or you may visit your local [facility] office in [place] for assistance. Contact information: [facility] [phone] Abdiel Owens DO. Specialty: Internal Medicine Why: call for appointment on returning to [place]. You should initially have blood work t wice weekly after discharge, decreasing as you are found to be more stable Contact information: [facility] [place] [address] RESULTS: Results for JULES [...] Creation Time: 04/25/2017 17:39 Procedure Orders: EEG [[id number]] ordered by Dalton Fairchild MD at 04/24/17 1227 Pre-procedure Diagnoses: Seizure (HCC) [R56.9] Post-procedure Diagnoses: Seizure (HCC) [R56.9] []Hide copied text []Hover for attribution information IN-PATIENT EEG REPORT Date: 04/25/2017 Time: 9:50 AM to 10:22 AM Ordering provider: Jules Palm Composition Stone Applicator: Beatriz Erazo History: Jules Palm is a [...] 9:18 AM Ordering provider: Dalton Fairchild MD Composition Stone Applicator: Beatriz Erazo History: Jules Palm is a [...] vomiting an d has been assessed at [facility] with colonoscopy to her cecum which was [...] her abdomen and pelvis on 02/08/[address] [facility] in this record was reviewed and no adrenal masses were noted. The patient does have hypertension and was initiated on metoprolol 50 mg twice daily which has helped with blood pressure and heart rate and will need to be seen in follow-up when she returns to her primary physician in [place]. Blood pressures here been in the 90-100 [...] and this w ill [facility] [place] where she is staying with her mother. [...] advised to follow-up with her physician in [place] when she returns and records of this [...] signed by: Dalton Fairchild MD, 04/26/2017 17:51 [facility] Portions of this chart may have been created with [employer] voice recognition software. Occasi onal wrong-word or sound-alike substitutions may have occurred due to the inherent clifton itations of voice recognition software. Please read the chart carefully and recognize, using context, where these substitutions have occurred documented in this encounter Discharge Instructions Instructions Dalton Fairchild MD - 04/26/2017Go to [facility] in [place] on Sunday real saab for lab testing. Care management will contact her tomorrow with instructions. [address] testing if you have not heard from Dr. Fairchild contact him at [phone] for test r jazmine. This is a digital number and you need to enter your phone number and he'll call you back. AttachmentsThe following attachments cannot be sent through Care Everywhere.Magnesium Salts capsules or tablets, immediate release (Chilean)Loperamide tablets or capsules (Chilean)Met oprolol tablets (Chilean)Potassium Citrate Extended-Release Tablets (Chilean)documented in t his encounter Medications at Time [...] Fairchild MD - 04/25/2017 5:47 PM PST [facility] PM Hospitalist Progress Note Jules Tadeo [...] The patient reports having lower endoscopy at [facility]. Review of care everywhe re shows the [...] as outlined above. Dalton Fairchild 04/25/2017 17:47 [facility] Portions of this chart may have been created with [employer] voice recognition software. Occasi onal wrong-word or sound-alike substitutions may have occurred due to the inherent clifton itations of voice recognition software. Please read the chart carefully and recognize, using context, where these substitutions have occurred eynaldo Rhoades [facility] - 04/24/2017 8:09 PM PST PHARMACY SERVICES: [...] and directions X Pharmacy list names: [facility] [place] when there [facility] [place] when here X [employer] insurance reported information [...] performed and electronically signed by Mira Boo, Supply Chain Consultant 19:52 Electronically signed by: Reynaldo Rhoades [facility] 04/24/2017 20:09 Dalton López MD - 04/24/2017 12:55 PM PSTFormatt ing of this note might be different from the original. [facility] PMG Hospitalist Progress Note Jules Palm [...] The patient reports having lower endoscopy at [facility]. Review of care everywhe re shows the [...] as outlined above. Dalton Fairchild 04/24/2017 12:55 [facility] Portions of this chart may have been created with [employer] voice recognition software. Occasi onal wrong-word or [...] to have l unch. Prior to this People[employer] had notified this RN that HR had [...] | + +--------+ + + + | [facility] LAB REFERRAL | Routin | 04/26/2017 | [...] + + documented in this encounter Results [facility] Lab Referral (04/26/2017 6:17 PM PST) + [...] | | us Lab Test | Ordered: [id number] | | LAB [facility] | | | [...] | REFERENCE LAB | | 01 - [facility] [place], [place] | [facility] | | [id number] Director: Trevor De La Vega MD, Phone: [phone] | | + + + + + + + + | Performing | Address | City/State/Zipcode | Phone Number | | Organization | | | | + + + + + | REFERENCE LAB | [address] | [place] [address] | [phone] | | [facility] | Drive [...] | | Urine | | | [facility] | | | | | | MEDICAL [...] St | [place] | [phone] | | [facility] | | [address] | | | - LABORATORY | | [...] | | | | | d by [facility]. It has not | | | | [...] | Performed at: 01 - [facility] [address] [place] [address], | REFERENCE LAB | | [place], [place] [id number] Bonding And Composite Fabricator: Trevor De La Vega MD, Phone: | [facility] | | [phone] | | + + + + + + + + | Performing | Address | City/State/Zipcode | Phone Number | | Organization | | | | + + + + + | REFERENCE LAB | [address] | [place] [address] | [phone] | | [facility] | Drive [...] - 1.030 | [facility] | | | [place] | | | [facility] | | [...] ST. | [address] | [place], [place] | [phone] | | [facility] | | [address] | | | - LABORATORY | | [...] St | [place] | [phone] | | [facility] | | [address] | | | - LABORATORY | | [...] St | [place] | [phone] | | [facility] | | [address] | | | - LABORATORY | | [...] + | [facility] | [address] | [place] | [phone] | | [facility] | | [address] | | | - LABORATORY | | [...] 0.58 (L) | 0.60 - 1.30 | [facility] | | | | | mg/dL | [facility] | | | | | | MEDICAL | | | | | | CENTER - | | | | | | LABORATORY | | + + + + + + | eGFR if not | >60Comment: GLOMERULAR | >=60 | [facility] | | | | FILTRATION | mL/min/1.73m2 | [facility] | | | SYRIAN | RATE,ESTIMATED | | MEDICAL | | | | mL/min/1.63n8Vlck than | | CENTER - | | [...] + | [facility] | [address] | [place] | [phone] | | [facility] | | [address] | | | - LABORATORY | | [...] mL/min/1.73m2 | [facility] | | | SYRIAN | RATE,ESTIMATED | | MEDICAL | | | | mL/min/1.93w4Ureu than | | CENTER - | | [...] ST. | [address] | [place], [place] | [phone] | | [facility] | | [address] | | | - LABORATORY | | [...] St | [place] | [phone] | | [facility] | | [address] | | | - LABORATORY | | | | + + + + + EEG (04/25/2017 5:39 PM PST) + + + | Narrative | Performed At | + + + | Ajay Serrano MD 04/25/2017 17:58 IN-PATIENT EEG REPORT | | | Date: 04/25/2017 Time: 9:50 AM to 10:22 AM Ordering | | | provider: Julesmike Palm Composition Stone Applicator: Beatriz Erazo | | | History: Jules [...] | | | | | | [facility] | | | | | | MEDICAL | | | | | | CENTER - | | | | | | LABORATORY | | + + + + + + | Creatinine | 0.64 | 0.60 - 1.30 | [facility] | | | | | mg/dL | [facility] | | | | | | MEDICAL | | | | | | CENTER - | | | | | | LABORATORY | | + + + + + + | eGFR if not | >60Comment: GLOMERULAR | >=60 | [facility] | | | | FILTRATION | mL/min/1.73m2 | [facility] | | | SYRIAN | RATE,ESTIMATED | | MEDICAL | | | | mL/min/1.04m2Gmmq than | | CENTER - | | [...] + | [facility] [facility] | [address] | [place] | [phone] | | [facility] | | [address] | | | - LABORATORY | | [...] [address] | [place] | [phone] | | [facility] | | [address] | | | - LABORATORY | | [...] + | Performed at: 01 - [facility] [address] [facility], | REFERENCE LAB | | [place], [place] [id number] Bonding And Composite Fabricator: Trevor De La Vega MD, Phone: | [facility] | | [phone] Performed at: 02 - [facility] [address] | | | [address] [id number] Bonding And Composite Fabricator: Bartolo Wilkes MD, | | | Phone: [phone] | | + + + + + + + + | Performing | Address | City/State/Zipcode | Phone Number | | Organization | | | | + + + + + | REFERENCE LAB | [address] | [place] [address] | [phone] | | [facility] | Drive [...] St | [place] | [phone] | | [facility] | | [address] | | | - LABORATORY | | [...] [address] | [place] | [phone] | | [facility] | | [address] | | | - LABORATORY | | [...] mL/min/1.73m2 | [facility] | | | SYRIAN | RATE,ESTIMATED | | MEDICAL | | | | mL/min/1.30u4Qbhk than | | CENTER - | | [...] St | [place] | [phone] | | [facility] | | [address] | | | - LABORATORY | | [...] + | [facility] | [address] | [place] | [phone] | | [facility] | | [address] | | | - LABORATORY | | [...] | | | | EDUARDO REINOSO, JOVITA ([id number]) | | | | | | on [...] + | [facility] | [address] | [place] | [phone] | | [facility] | | [address] | | | - LABORATORY | | [...] + | [facility] | [address] | [place] | [phone] | | [facility] | | [address] | | | - LABORATORY | | [...] St | [place] | [phone] | | [facility] | | [address] | | | - LABORATORY | | [...] + | [facility] [facility] | [address] | [place] | [phone] | | [facility] | | [address] | | | - LABORATORY | | [...] St | [place] | [phone] | | [facility] | | [address] | | | - LABORATORY | | [...] St | [place] | [phone] | | [facility] | | [address] | | | - LABORATORY | | [...] (L) | 7 - 18 mg/dL | [facility] | | | | | | [facility] | | | | | | MEDICAL | | | | | | CENTER - | | | | | | LABORATORY | | + + + + + + | Creatinine | 0.82 | 0.60 - 1.30 | [facility] | | | | | mg/dL | [facility] | | | | | | MEDICAL | | | | | | CENTER - | | | | | | LABORATORY | | + + + + + + | eGFR if not | >60Comment: GLOMERULAR | >=60 | [facility] | | | | FILTRATION | mL/min/1.73m2 | [facility] | | | [place] | RATE,ESTIMATED | | MEDICAL | | | | mL/min/1.81v4Cpwg than | | CENTER - | | [...] St | [place] | [phone] | | [facility] | | [address] | | | - LABORATORY | | [...] St | [place] | [phone] | | [facility] | | [address] | | | - LABORATORY | | [...] | | | 1 mg, Oral, ONCE, [facility] 04/26/17 | | 17 1:32 | | [...] | | | DAILY, First dose on [facility] 04/26/17 | | PM PST | | [...] | | | | | modification) on [facility] 04/26/17 at | | | | | [...] PST | | | | | ONCE, [facility] 04/24/17 at 2045, For 1 | | [...] PST | | | | | ONCE, [facility] 04/25/17 at 0745, For 1 | [...] PST | | | | | ONCE, [facility] 04/25/17 at 1200, For 1 | [...] PST | | | | | ONCE, [facility] 04/26/17 at 1615, For 1 | | [...]
--- OUTSIDE RECORDS SUMMARY | ~2019-03-29 | XMS | Clinical Summary ---
Demographics + + + | Address | [address] | | | [place] [address] | + + + | Home Phone | | + + + | Preferred Language | Unknown | + + + | Marital Status | Unknown | + + + | Moravian Affiliation | Unknown | + + + | Race | Unknown | + + + | Ethnic Group | Unknown | + + + Author + + + | Author | [facility] | | | and [place] | + + + | Organization | [facility] | | | and [place] [...] Team Providers + +------+ + | Care Heavy Duty Custodian Name | Role | Phone | + [...] | + +--------+ +--------+ +---------+------+ | [facility] | PHP | [id number] | 04/30/19 | [phone] | | PPO | | PLAN | PERSON | | 16-Pre | 5 | | | | | [place] | | sent | | | | | | OPEN | | | | | | | | OPTION | | | | | | + +--------+ +--------+ +---------+------+ | [facility] | [facility] | [id number] | 04/30/19 | [phone] | | PPO | | PLAN | [...] | 1990 | [phone] | [place] [address] | | | brianna | | | 9 (Home) | | + +--------+ +--------+ + + Advance Directives + + + + + | Type | Date Recorded | Patient | Explanation | | | | 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
--- OUTSIDE RECORDS SUMMARY | ~2019-03-29 | XMS | Encounter Summary ---
Demographics + + + | Address | [address] | | | [place] [address] | + + + | Home Phone | | + + + | Preferred Language | Unknown | + + + | Marital Status | Unknown | + + + | Buddhist Affiliation | Unknown | + + + | Race | Unknown | + + + | Ethnic Group | Unknown | + + + Author + + + | Author | [facility] | | | and [place] | + + + | Organization | [facility] | | | and [place] [...] Team Providers + +------+ + | Care Website Project Manager Name | Role | Phone | + [...] + + | 04/23/ | Hospital | [facility] | Dennis De Jesus | Hypokalemia (Primary | | 2017 - | Encounter | [facility] | MD Hammad [address] | Dx); | | | | [address] | [address] | Hypomagnesemia; | | 04/26/ | | [place] [address] | [place] [address] | Hypocalcemia; | | 2017 | | [phone] | [phone] | Prolonged Q-T | | | | | | interval on ECG; | | | | | Deo Malik MD | Electrocardiogram | | | | | [address] | showing T wave | | | | | [place], [place] | abnormalities; | | | | | [address] | Electrolyte | | | | | | depletion; Seizure | | | | | Dalton Fairchild MD | ([facility]) | | | | | [address] | | | | | | [place], [place] | | | | | | [address] | | | | | | | [...] Fairchild MD - 04/26/2017 5:50 PM PST [facility] DISCHARGE SUMMARY Pt. Name/Age/: uJles Palm 27 y.o. 1990 Date of Admission: [...] with [facility] and get assistance applying for [place] [employer] aid. Or you may visit your local [facility] office in [place] for assistance. Contact information: [facility] [employer] [phone] Abdiel Owens DO. Specialty: Internal Medicine Why: call for appointment on returning to [place]. You should initially have blood work t wice weekly after discharge, decreasing as you are found to be more stable Contact information: [facility] [place] [address] RESULTS: Results for JULES [...] Creation Time: 04/25/2017 17:39 Procedure Orders: EEG [[id number]] ordered by Dalton Fairchild MD at 04/24/17 1227 Pre-procedure Diagnoses: Seizure (HCC) [R56.9] Post-procedure Diagnoses: Seizure (HCC) [R56.9] []Hide copied text []Hover for attribution information IN-PATIENT EEG REPORT Date: 04/25/2017 Time: 9:50 AM to 10:22 AM Ordering provider: Jules Palm Managing Broker: Beatriz Erazo History: Jules Palm is a [...] 9:18 AM Ordering provider: Dalton Fairchild MD Managing Broker: Beatriz Erazo History: Jules Palm is a [...] vomiting an d has been assessed at [facility] with colonoscopy to her cecum which [...] her abdomen and pelvis on 02/08/2017 at [facility] in this record was reviewed and no adrenal masses were noted. The patient does have hypertension and was initiated on metoprolol 50 mg twice daily which has helped with blood pressure and heart rate and will need to be seen in follow-up when she returns to her primary physician in [place]. Blood pressures here been in the 90-100 [...] and this w ill [facility] [place] where she is staying with her mother. [...] advised to follow-up with her physician in [place] when she returns and records of this [...] signed by: Dalton Fairchild MD, 04/26/2017 17:51 [facility] Portions of this chart may have been created with [employer] voice recognition software. Occasi onal wrong-word or sound-alike substitutions may have occurred due to the inherent clifton itations of voice recognition software. Please read the chart carefully and recognize, using context, where these substitutions have occurred documented in this encounter Discharge Instructions Instructions Dalton Fairchild MD - 04/26/2017Go to [facility] in [place] on Sunday real saab for lab testing. Care management will contact her tomorrow with instructions. [address] testing if you have not heard from Dr. Fairchild contact him at [phone] for test r jazmine. This is a digital number and you need to enter your phone number and he'll call you back. AttachmentsThe following attachments cannot be sent through Care Everywhere.Magnesium Salts capsules or tablets, immediate release (Guatemalan)Loperamide tablets or capsules (Guatemalan)Met oprolol tablets (Guatemalan)Potassium Citrate Extended-Release Tablets (Guatemalan)documented in t his encounter Medications at Time [...] Fairchild MD - 04/25/2017 5:47 PM PST [facility] PM Hospitalist Progress Note Jules [...] The patient reports having lower endoscopy at [facility]. Review of care everywhe re shows [...] as outlined above. Dalton Fairchild 04/25/2017 17:47 [facility] Portions of this chart may have been created with [employer] voice recognition software. Occasi onal wrong-word or sound-alike substitutions may have occurred due to the inherent clifton itations of voice recognition software. Please read the chart carefully and recognize, using context, where these substitutions have occurred eynaldo Rhoades [facility] - 04/24/2017 8:09 PM PST PHARMACY SERVICES: [...] and directions X Pharmacy list names: [facility] [place] when there [facility] [place] when here X [employer] insurance reported information [...] performed and electronically signed by Mira Boo, Hat Blocking Operator 19:52 Electronically signed by: Reynaldo Rhoades [facility] 04/24/2017 20:09 Dalton López MD - 04/24/2017 12:55 PM PSTFormatt ing of this note might be different from the original. [facility] PMG Hospitalist Progress Note Jules [...] The patient reports having lower endoscopy at [facility]. Review of care everywhe re shows [...] as outlined above. Dalton Fairchild 04/24/2017 12:55 [facility] Portions of this chart may have been created with [employer] voice recognition software. Occasi onal wrong-word or [...] to have l unch. Prior to this [employer] had notified this RN that HR had [...] | + +--------+ + + + | [facility] REFERRAL | Routin | 04/26/2017 [...] + + documented in this encounter Results [facility] [place]erral (04/26/2017 6:17 [...] | | us Lab Test | Ordered: [id number] | | LAB [facility] | | | [...] | REFERENCE LAB | | 01 - [facility] [place], [place] | [facility] | | [id number] Director: Trevor De La Vega MD, Phone: [phone] | | + + + + + + + + | Performing | Address | City/State/Zipcode | Phone Number | | Organization | | | | + + + + + | REFERENCE LAB | [address] | [place] [address] | [phone] | | [facility] | Drive [...] | | Urine | | | [facility] | | | | | | MEDICAL [...] St | [place] | [phone] | | [facility] | | [address] | | | - LABORATORY | | [...] | | | | | d by [facility]. It has not | | | | [...] | Performed at: 01 - [facility] [address] [place] [address], | REFERENCE LAB | | [place], [place] [id number] Top Precipitator Operator: Trevor De La Vega MD, Phone: | [facility] | | [phone] | | + + + + + + + + | Performing | Address | City/State/Zipcode | Phone Number | | Organization | | | | + + + + + | REFERENCE LAB | [address] | [place] [address] | [phone] | | [facility] | Drive [...] - 1.030 | [facility] | | | [place] | | | [facility] | | [...] ST. | [address] | [place], [place] | [phone] | | [facility] | | [address] | | | - LABORATORY | | [...] St | [place] | [phone] | | [facility] | | [address] | | | - LABORATORY | | [...] St | [place] | [phone] | | [facility] | | [address] | | | - LABORATORY | | [...] + | [facility] [facility] | [address] | [place] | [phone] | | [facility] | | [address] | | | - LABORATORY | | [...] 0.58 (L) | 0.60 - 1.30 | [facility] | | | | | mg/dL | [facility] | | | | | | MEDICAL | | | | | | CENTER - | | | | | | LABORATORY | | + + + + + + | eGFR if not | >60Comment: GLOMERULAR | >=60 | [facility] | | | | FILTRATION | mL/min/1.73m2 | [facility] | | | [place] | RATE,ESTIMATED | | MEDICAL | | | | mL/min/1.14k7Owyv than | | CENTER - | | [...] + | [facility] | [address] | [place] | [phone] | | [facility] | | [address] | | | - LABORATORY | | [...] mL/min/1.73m2 | [facility] | | | [place] | RATE,ESTIMATED | | MEDICAL | | | | mL/min/1.98z2Tvbw than | | CENTER - | | [...] ST. | [address] | [place], [place] | [phone] | | [facility] | | [address] | | | - LABORATORY | | [...] St | [place] | [phone] | | [facility] | | [address] | | | - LABORATORY | | | | + + + + + EEG (04/25/2017 5:39 PM PST) + + + | Narrative | Performed At | + + + | Ajay Serrano MD 04/25/2017 17:58 IN-PATIENT EEG REPORT | | | Date: 04/25/2017 Time: 9:50 AM to 10:22 AM Ordering | | | provider: Julesmike Palm Managing Broker: Beatriz Erazo | | | History: Jules [...] | 0.64 | 0.60 - 1.30 | [facility] | | | | | mg/dL | [facility] | | | | | | MEDICAL | | | | | | CENTER - | | | | | | LABORATORY | | + + + + + + | eGFR if not | >60Comment: GLOMERULAR | >=60 | [facility] | | | | FILTRATION | mL/min/1.73m2 | [facility] | | | [place]EN[place] | RATE,ESTIMATED | | MEDICAL | | | | mL/min/1.18h7Iesd than | | CENTER - | | [...] + | [facility] [facility] | [address] | [place] | [phone] | | [facility] | | [address] | | | - LABORATORY | | [...] [address] | [place] | [phone] | | [facility] | | [address] | | | - LABORATORY | | [...] + | Performed at: 01 - [facility] [address] [facility], | REFERENCE LAB | | [place], [place] [id number] Top Precipitator Operator: Trevor De La Vega MD, Phone: | [facility] | | [phone] Performed at: 02 - [facility] [address] | | | [address] [id number] Top Precipitator Operator: Bartolo Wilkes MD, | | | Phone: [phone] | | + + + + + + + + | Performing | Address | City/State/Zipcode | Phone Number | | Organization | | | | + + + + + | REFERENCE LAB | [address] | [place] [address] | [phone] | | [facility] | Drive [...] St | [place] | [phone] | | [facility] | | [address] | | | - LABORATORY | | [...] [address] | [place] | [phone] | | [facility] | | [address] | | | - LABORATORY | | [...] mL/min/1.73m2 | [facility] | | | [place] | RATE,ESTIMATED | | MEDICAL | | | | mL/min/1.71v9Nkal than | | CENTER - | | [...] St | [place] | [phone] | | [facility] | | [address] | | | - LABORATORY | | [...] + | [facility] | [address] | [place] | [phone] | | [facility] | | [address] | | | - LABORATORY | | [...] | | | | EDUARDO REINOSO, JOVITA ([address]) | | | | | | on [...] + | [facility] | [address] | [place] | [phone] | | [facility] | | [address] | | | - LABORATORY | | [...] + | [facility] | [address] | [place] | [phone] | | [facility] | | [address] | | | - LABORATORY | | [...] St | [place] | [phone] | | [facility] | | [address] | | | - LABORATORY | | [...] + | [facility] | [address] | [place] | [phone] | | [facility] | | [address] | | | - LABORATORY | | [...] St | [place] | [phone] | | [facility] | | [address] | | | - LABORATORY | | [...] St | [place] | [phone] | | [facility] | | [address] | | | - LABORATORY | | [...] (L) | 7 - 18 mg/dL | [facility] | | | | | | [facility] | | | | | | MEDICAL | | | | | | CENTER - | | | | | | LABORATORY | | + + + + + + | Creatinine | 0.82 | 0.60 - 1.30 | [facility] | | | | | mg/dL | [facility] | | | | | | MEDICAL | | | | | | CENTER - | | | | | | LABORATORY | | + + + + + + | eGFR if not | >60Comment: GLOMERULAR | >=60 | [facility] | | | | FILTRATION | mL/min/1.73m2 | [facility] | | | [place] | RATE,ESTIMATED | | MEDICAL | | | | mL/min/1.29n9Cxvw than | | CENTER - | | [...] St | [place] | [phone] | | [facility] | | [address] | | | - LABORATORY | | [...] St | [place] | [phone] | | [facility] | | [address] | | | - LABORATORY | | [...] | | | 1 mg, Oral, ONCE, [facility] 04/26/17 | | 17 1:32 | [...] | | | DAILY, First dose on [facility] 04/26/17 | | PM PST | [...] | | | | | modification) on [facility] 04/26/17 at | | | | [...] PST | | | | | ONCE, [facility] 04/24/17 at 2045, For 1 [...] PST | | | | | ONCE, [facility] 04/25/17 at 0745, For 1 | | [...] PST | | | | | ONCE, [facility] 04/25/17 at 1200, For 1 | | [...] PST | | | | | ONCE, [facility] 04/26/17 at 1615, For 1 | [...]
--- OUTSIDE RECORDS SUMMARY | ~2019-03-29 | XMS | Clinical Summary ---
Demographics + + + | Address | [address] | | | [place] [address] | + + + | Home Phone | | + + + | Preferred Language | Unknown | + + + | Marital Status | Unknown | + + + | Yazdanism Affiliation | Unknown | + + + | Race | Unknown | + + + | Ethnic Group | Unknown | + + + Author + + + | Author | [facility] | | | and [place] | + + + | Organization | [facility] | | | and [place] [...] Team Providers + +------+ + | Care Artillery Or Naval Gunfire Observer Name | Role | Phone | + [...] | | + +--------+ +--------+ +---------+------+ | [facility] | PHP | [phone] | 04/30/19 | [phone] | | PPO | | PLAN | PERSON | | 16-Pre | 5 | | | | | [place] | | sent | | | | | | OPEN | | | | | | | | OPTION | | | | | | + +--------+ +--------+ +---------+------+ | [facility] | [facility] | [id number] | 04/30/19 | [phone] | | PPO | | PLAN | [...] | 1990 | [phone] | [place] [address] | | | brianna | | | 9 (Home) | | + +--------+ +--------+ + + Advance Directives + + + + + | Type | Date Recorded | Patient | Explanation | | | | [employer] | | + + + + + | Power of | | | | | Department Store General Manager | | | | + + + [...]
[~2019-03-29 16:18] MED LIST changes: -K-TAB ER20 MEQ PO; +POTASSIUM CHLO10 ME2 PO
--- OUTSIDE RECORDS SUMMARY | 2019-03-29 16:24 | XMS ---
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 PHONE: [phone] [facility] Primary Care 07/16/2017-[facility] PHONE: [phone] Abdiel Cole DO Primary Care 08/18/2016-Current PHONE: Unknown ABDIEL COLE Primary Care Current PHONE: Unknown MEREDITH TUBBS Primary [facility] PHONE: Unknown orashlee Case or Renal Dialysis Technician Current PHONE: Unknown Zoe Tarango Other Current [facility] PHONE: Unknown Isamar has no Care Guidelines for this patient. E.DBrayden VISIT COUNT (12 MO.) 3 [facility] TOTAL 3 NOTE: Visits indicate total known visits. ED/UCC VISIT TRACKING (12 MO.) 03/29/2019 16:21 [facility] TYPE: Emergency COMPLAINT: - SEIZURE, MOUTH BLEEDING 03/04/2019 21:11 [facility] TYPE: Emergency COMPLAINT: - SEIZURE ACTIVITY DIAGNOSES: - Other group home (current) drug therapy - Hypomagnesemia - Nicotine dependence, unspecified, uncomplicated 09/24/2018 17:[address] [facility] [place] TYPE: Emergency COMPLAINT: - LOW MAGNESIUM LEVELS DIAGNOSES: - Dehydration - Nicotine dependence, unspecified, uncomplicated - Other group home (current) drug therapy - Hypomagnesemia - Alcohol dependence, uncomplicated INPATIENT VISIT TRACKING (12 MO.) No inpatient visits to display in this time frame [email or web address]
--- NOTE | 2019-03-29 19:00 | NUR ---
SHIFT REPORT RECEIVED. PATIENT RESTING IN BED. MOTHER AT BEDSIDE. PATIENT'S MOTHER CLOSED BOTH THE DOOR AND CURTAIN WHEN STAFF WAS OUT OF ROOM. EARLENE MATHEW INFORMED PATIENT AND FAMILY THAT THE CURTAIN MUST REMAIN OPEN FOR SAFETY WHILE PATIENT IS ON SEIZURE PRECAUTIONS. FAMILY AND PATIENT AGREEABLE. PATIENT DENIES ANY NEEDS AT THIS TIME. APPEARS CALM, RESTING WITH EYES CLOSED.
--- NOTE | 2019-03-29 20:30 | NUR ---
SECOND IV SITE ESTABLISHED. IV FLUIDS AND MAG INFUSING PER ORDERS. PATIENT IS ALERT AND ORIENTED. APPEARS CALM. CIWA 8 DUE TO TACTILE DISTURBANCES, NUMBNESS/TINGLING, AND DIAPHORESIS. SEIZURE PRECAUTIONS IN PLACE. PATIENT REPORTS MILD NAUSEA. TOLERATING SIPS OF WATER PROVIDED BY THIS RN. PATIENT LATER FOUND TO BE DRINKING FROM HER MOTHER'S WATER BOTTLE. EDUCATED PATIENT THAT DUE TO STRICT I&O'S WE NEED HER TO USE THE MEASURED CUP. WHICH SHE AGREES. PATIENT'S LIP IS SWOLLEN AND VISIBLE INJURED FROM BITING. ICE PROVIDED. HR CONTINUES TO BE ELEVATED, 120'S AT REST. RT IN ROOM FOR EKG. PATIENT APPEARS TO HAVE MODERATE TREMORS, MORE SO IN HER LOWER EXTREMITITES AND REPORT PAIN WITH TOUCH. EXTREMITITES ARE COLD AND PALE. PATIENT DENIES TOILETING NEEDS AT THIS TIME. MOTHER REMAINS AT BEDSIDE.
--- NOTE | 2019-03-29 21:22 | NUR ---
PATIENT CONTINUES TO REST, APPEARS COMFORTABLE. MOTHER AT BEDSIDE. BOTH DENY ANY NEEDS AT THIS TIME. IV SITES WNL, X2.
--- NOTE | 2019-03-29 21:33 | NUR ---
PATIENT UP TO BSC. MINIMAL ASSIST REQUIRED, STAFF STAND BY FOR SAFETY. PATIENT HAVE MODERATE TO SEVERE TREMORS WITH STANDING. PATIENT VOIDED 400 ML GARY COLORED URINE AND RETURNED TO BED. PATIENT APPEARS VERY TIRED AND REPORTED THE TRANSFER DIFFICULT DUE TO THE TREMORS AND NAUSEA. PATIENT DENIES FURTHER NEEDS. MOTHER AT BEDSIDE.
--- NOTE | 2019-03-29 22:54 | EKG ---
[facility] [address] [facility] [place], [place] [address] Signed Sinus tachycardia Otherwise normal ECG When compared with ECG of 04-MAR-2019 21:24, No significant change was found Confirmed by SINGH ROCHE MD ([id number]) on 03/29/2019 10:53:52 PM Electronically Signed By: SINGH ROCHE MD 03/29/19 2254 PATIENT NAME: JULES BRITO Electrocardiogram DATE OF : [birth year] PHYSICIAN: SINGH ROCHE MD REPORT #: [id number] REPORT IS CONFIDENTIAL AND NOT TO BE RELEASED WITHOUT AUTHORIZATION
--- NOTE | 2019-03-29 23:11 | NUR ---
ALL OF THE ORDERS POTASSIUM AND MAG INFUSIONS HAVE FINISHED. IV FLUIDS CONTINUE AT 100 ML/HR. CA GLUCONATE INFUSION AT 50 ML/HR. IV SITES WNL. PATINET RESTING IN BED WATCHING TV. APPEARS CALM AND DENIES ANY NEEDS. FRESH ICE PACK PROVIDED FOR LIP INJURY. PATIENT REPORTS HER NAUSEA IS MINIMAL. CONTINUES TO HAVE MODERATE TREMORS. PATIENT THINKS THE MUSCLE SPASMS HAVE BEEN OCCURING LESS FREQUENTLY THAN BEFORE. MOTHER REMAINS AT BEDSIDE.
--- NOTE | 2019-03-29 23:48 | NUR ---
PATIENT UP TO BSC. MINIMAL ASSIST REQUIRED. PATIENT CONTINUES TO HAVE MODERATE/SEVERE TREMORS WHEN STANDING. PATIENT ALSO DRY HEAVES OR GAGS ONCE. DENIES INCREASING NAUSEA, STATES "I DON'T KNOW, THAT WAS WEIRD BUT I'M FINE." PROVIDED PATIENT WITH ICE CHIPS PER REQUEST. ENCOURAGED HER TO SLEEP. MOTHER AT BEDSIDE. PILLOW AND BLANKET PROVIDED.
--- NOTE | 2019-03-30 01:27 | NUR ---
LABS REPORTED TO . ORDERS FOR POTASSIUM REPLACEMENT RECEIVED. VERIFIED VIA REPEAT BACK METHOD.
--- NOTE | 2019-03-30 02:31 | NUR ---
UP TO BSC TO VOID AND BACK TO BED, SHAKY ON FEET, STAND BY ASSIST. HR UP TO 130'S WHILE UP THEN DOWN TO 80'S ONCE IN BED.
--- NOTE | 2019-03-30 04:25 | NUR ---
PATIENT UP TO [facility] TO VOID. CONTINUES TO BE UNSTEADY WITH MODERATE TO SEVERE TREMORS. PATIENT REPORTS AT REST THE MUSCLE SPASMS ARE NOT OCCURING REGULARLY BUT CONTINUES TO BE TREMULOUS. CIWA 7. PATIENT HAS MILD NAUSEA. PRN ZOFRAN PROVIDED. PATIENT STATES SHE HAS BEEN UNABLE TO SLEEP, IS NOT SURE OF THE REASON. NO COMPLAINTS. DENIES FEELING ANXIOUS. APPEARS CALM, SLIGHTLY WITHDRAWN. PATIENT RETURNED TO BED. DENIES NEED FOR CLEAR LIQUIDS OR WARM BLANKET. ENCOURAGED PATIENT TO REST. CALL LIGHT IN REACH.
--- NOTE | 2019-03-30 06:04 | NUR ---
PATIENT UP TO BSC. APPEARS MORE STEADY THAN PREVIOUS BUT CONTINUES TO HAVE MODERATE TREMOR. PATIENT VOIDED AND HAD MEDIUM FORMED BM. PATIENT REPORTS ONGOING NAUSEA, PRN PROVIDED. CIWA 7. PATIENT REPORTS HAVING GONE THROUGH WITHDRAWL PRIOR TO THIS AND STATES "IT DOESN'T FEEL ANY WORSE". REVIEWED PATIENT'S MEDICATION LIST WITH HER, PATIENT REPORTS TAKING HER MAG AND POTASSIUM SUPPLEMENTS DAILY, MOST RECENTLY SUNDAY. LAB IN FOR MORING DRAW. PATIENT DENIED ANY FURTHER NEEDS.
--- NOTE | 2019-03-30 07:30 | NUR ---
PATIENT SHIFT REPORT RECIEVED FROM CARVING MACHINE OPERATOR RN. PATIENT RESTING IN BED WITH SIEZURE PADS IN PLACE FOR PATIENTS SAFETY. PATIENT CALLS APPROPRIATELY. WILL CONTINUE TO CLOSELY MONITOR.
--- NOTE | 2019-03-30 08:00 | NUR ---
PATIENT CALLS TO GET UP TO THE CAMMODE. PATIENT SHAKY WITH STANDING, BUT STATES SHE FEELS BETTER THAN YESTERDAY. PATIENT HAD A LIQUID BM AND URINATED. PATIENT NEEDS A URINE SAMPLE. WILL TRYA AND HAVE PATIENT URINATE FIRST NEXT TIME TO GET A CLEAN CATCH. PATIENT BACK TO BED. PATIENT TOELRATED WELL. ALL QUESTIONS ANSWERED. WILL CONTINUE TO CLOSELY MONITOR.
--- NOTE | 2019-03-30 09:42 | NUR ---
IN FOR PTS INITIAL CASE MANAGEMENT ASSESSMENT. PT IS ADMITTED WITH DIAGNOSIS OF ALCOHOL WITHDRAWL. BRIEFLY ASKED PT IF SHE HAS PLANS TO GO TO [place] ON DISCHARGE, SHE STATES NO.
--- NOTE | 2019-03-30 10:00 | NUR ---
ROCHE IN TO SEE PATIENT. UPDATED ON PLAN OF CARE. WILL INCREASE ACTIVITY, REPLACE VITAMINS, AND MONITOR HOW PATIENT TOLERATES. WILL ADVANCE DIET PATIENT TOLERATES. NO OTHER NEEDS AT THIS TIME. PATIENTS MOTHER AT THE BEDSIDE. WILL COTNINUE TO CLOSELY MONITOR.
--- NOTE | 2019-03-30 11:00 | NUR ---
PATIENT CIWA CHECKED. PATIENT DENIES HEADACHE, VISION CHANGES, HALLUCINATIONS, AND SWEATING. PATIENT DOES HAVE MILD TREMORS AT REST AND MILD ANXIETY. PATIENT IS ALERT AND ORIENTED AND FOLLOWS COMMANDS. PATIENT STATES "I HAVE GONE THROUGH WITHDRAWLS BEFORE, THIS IS PROBALY THE WORST IT HAS BEEN". PATIENT DENIES WANTING TO GO TO OUTPATIENT REHAB AFTER DISCHARGE. WILL CONTINUE TO CLOSELY MONTIOR. NO OTHER NEEDS AT THIS TIME.
--- NOTE | 2019-03-30 11:58 | NUR ---
IN TO GIVE PATIENT MEDICATIONS. PATIENT UP TO THE BEDSIDE CAMMODE. PATIENT IS A LITTLE SHAKY WITH ACTIVITY, BUT IS STEADY ON HER FEET. PATIENTS MOM IS IN THE ROOM. PROVIDED PATIENT WITH MENU TO SEE WHAT SOUNDS GOOD FOR LUNCH. PATIENT WORKING ON CLEAR LIQUID TRAY AT THIS TIME. SEIZURE PADS IN PLACE. WILL CONTINUE TO CLOSELY MONITOR.
--- NOTE | 2019-03-30 13:30 | NUR ---
PATIENT CALLED AND UP TO THE BATHROOM. PATIENT HR WITH ACTIVITY IS 130'S. PATIENT A LITTLE SHAKY WITH MOVEMENT, BUT STABLE ON HER FEET. PATIENT CLOTHES CHANGED. PATIENT FINISHED CLEAR LIQUID TRAY AND ADVANCING DIET. MILD NAUSEA, NO EMESIS. IV CONTINUES TO INFUSE. PATIENT DENIES ANY NEEDS AT THIS TIME. PATIENTS MOTHER IS AT THE BEDSIDE. NO SIEZURE ACTIVITY SINCE ADMISSION. WILL CONTINUE TO CLOSELY MONITOR.
--- NOTE | 2019-03-30 14:00 | NUR ---
PATIENT HAS BEEN UP SEVERAL TIMES TO THE BATHROOM AND IS TOLERATING WELL. PATIENT IS A LITTLE SHAKY AT TIMES BUT DENIES ANY OTHER SIGNS/SYMPTOMS OF WITHDRAWLS. PATIENTS HR 130'S WITH ACTIVITY. PATIENT HAS EATEN SOLID FOODS AND IS TOLERATING WELL. PATIENTS MOM AT THE BEDSIDE. WILL CONTINUE TO CLOSELY MONITOR.
--- NOTE | 2019-03-30 15:10 | NUR ---
PT AMBULATED TO THE BATHROOM, DID WELL WITH THIS PROCESS, BACK TO BED. VOIDED AND HAD BM
--- NOTE | 2019-03-30 17:35 | NUR ---
ROCHE IN TO CHECK IN ON PATIENTS. UPDATED REGUARDING PATIENTS CONDITION. PATIENT REMAINS ALERT AND ORIENTED ONLY SLIGHTLY SHAKY AT TIMES. NO OTHER S/S OF WITHDRAWLS. NO S/S OF SIEZURE ACTOVITY. PATIENT HAS BEEN UP WALKING IN ROOM AND UP TO BATHROOM. PATIENT TOELRATING SOLID FOOD WITH NO ISSUES. WILL DO LABS AT THIS TIME. NO OTHER NEEDS AT THIS TIME. WILL CONTINUE TO CLOSELY MONITOR.
--- NOTE | 2019-03-30 18:20 | NUR ---
LABS DRAWN. PATIENT RESTING IN BED WITH HER MOTHER AT THE BEDSIDE. PATIENT DENIES ANY NEEDS AT THIS TIME. WILL CONTINUE TO CLOSELY MONITOR.
--- NOTE | 2019-03-30 19:00 | NUR ---
MD UPDATED OF NEW LAB RESULTS. PATIENT WOULD LIKE TO GO HOME. MD WILL WRITE FOR DISCHARGE ORDERS. NO OTHER NEEDS AT THIS TIME. WILL CONTINUE TO CLOSELY MONITOR.
[2019-03-30] MEDS ORDERED: MAGNESIUM200 MG PO (19:03)
[2019-03-30] MEDS ORDERED: POTASSIUM CHLO10 ME2 PO (19:03)
[2019-03-30] MEDS ORDERED: VITAMIN D325 MC1 PO (19:04)
[2019-03-30] MEDS ORDERED: OMEPRAZOLE20 MG PO (19:04)
[2019-03-30] MEDS ORDERED: ONDANSETRON ODT4 MG SL (19:05)
[2019-03-30] MEDS ORDERED: ELEMENTAL CALC600 MG PO (19:05)
[2019-03-30] MEDS ORDERED: CHLORHEXIDINE473 ML MT (19:06)
--- NOTE | 2019-03-30 20:08 | NUR ---
DISCHARGE COMPLETE. DC EDUCATION PROVIDED AND REVIEWED. ALL QUESTIONS ANSWERED. VS STABLE. IV DC X3, WNL. PATIENT DRESSED HERSELF. PROVIDED WITH WC RIDE TO FRONT DOOR. ACCOMPANIED BY HER MOTHER IN PRIVATE CAR. ALL BELONGINGS WITH PATIENT'S MOTHER.
== END 2019-03-30 20:10 | disposition home or self-care (01) | DRG 897 ==
LOC: ED 16:18 → CCU 18:33
PROVIDERS: ADMIT Internal Medicine
DX: F10.239 Alcohol dependence with withdrawal, unspecified (principal); E87.2 Acidosis; K70.10 Alcoholic hepatitis without ascites; R56.9 Unspecified convulsions; F17.210 Nicotine dependence, cigarettes, uncomplicated; K29.20 Alcoholic gastritis without bleeding; I10 Essential (primary) hypertension; E83.51 Hypocalcemia; E83.42 Hypomagnesemia; E87.6 Hypokalemia; F41.8 Other specified anxiety disorders; D69.59 Other secondary thrombocytopenia; Z79.899 Other long term (current) drug therapy; Z79.3 Long term (current) use of hormonal contraceptives
CPT/HCPCS: 36415; 71045; 80053; 82010; 82306; 83605; 83690; 83735; 84703; 85025; 85610; 85730; 93005; 93010; 96361; 96365; 96375; 99285-25; C9113; G0480; J0610; J0780; J2060; J2405; J2550; J3411; J3475; J3480; J7030; J7060; J7121

== ENCOUNTER 2019-05-06 13:08 | Emergency (ER) | payer OTHER ==
[~2019-05-06] VITALS: Ht 182.9 cm; Wt 79.4 kg
--- OUTSIDE RECORDS SUMMARY | ~2019-05-06 | XMS | Clinical Summary ---
Demographics + + + | Address | [address] | | | [place] [address] | + + + | Home Phone | | + + + | Preferred Language | Unknown | + + + | Marital Status | Unknown | + + + | Presybeterian Affiliation | Unknown | + + + | Race | Unknown | + + + | Ethnic Group | Unknown | + + + Author + + + | Author | [facility] | | | and [place] | + + + | Organization | [facility] | | | and [place] | [...] Team Providers + +------+ + | Care Senior Marketing Analyst Name | Role | Phone | + +------+ + | Abdiel Owens DO | PCP | | + +------+ + Allergies No Known Allergies Medications + + + +---------+------+------+-------+ | Medication | Sig | Dispensed | Refills | Star | End | Statu | | | | | | t | Date | s | | | | | | Date | | | + + + +---------+------+------+-------+ | venlafaxine | Take 75 mg by mouth | | 0 | | | Activ | | (EFFEXOR XR) 75 mg | Daily. | | | | | e | | 24 hr capsule | | | | | | | + + + +---------+------+------+-------+ | | Take 1 tablet by | | 0 | | | Activ | | levonorgestrel-ethin | mouth Daily. | | | | | e | | yl estradiol | | | | | | | | (INTROVALE) | | | | | | | | 0.15-0.03 MG per | | | | | | | | tablet | | | | | | | + + + +---------+------+------+-------+ | ALPRAZolam (XANAX) | Take 0.5 mg by mouth | | 0 | | | Activ | | 0.5 mg tablet | Daily as needed for | | | | | e | | | Anxiety. | | | | | | + + + +---------+------+------+-------+ | loperamide | Take 1 capsule by | 30 | 1 | 12/2 | | Activ | | (IMODIUM) 2 mg | mouth every 2 hours | capsule | | 8/20 | | e | | capsule | as needed for | | | 17 | | | | | Diarrhea (May give 2 | | | | | | | | mg after every | | | | | | | | diarrheal stool up | | | | | | | | to 4 doses in 24 | | | | | | | | hours). | | | | | | + + + +---------+------+------+-------+ | magnesium oxide | Take 2 tablets by | 200 | 0 | 12/2 | | Activ | | (MAG-OX) 400 mg | mouth 2 times daily. | tablet | | 8/20 | | e | | tablet | | | | 17 | | | + + + +---------+------+------+-------+ | metoprolol | Take 1 tablet by | 60 | 0 | 12/2 | | Activ | | tartrate (LOPRESSOR) | mouth 2 times daily. | tablet | | 8/20 | | e | | 50 mg tablet | | | | 17 | | | + + + +---------+------+------+-------+ | potassium chloride | Take 2 tablets by | 200 | 0 | 03/31 | | Activ | | (KLOR-CON) 10 mEq | mouth 2 times daily. | tablet | | 12/17 | | e | | CR tablet | | | | 17 | | | + + + +---------+------+------+-------+ Active Problems + + + | Problem | Noted Date | + + + | Hyperkalemia | 04/24/2017 | + + + | Hypomagnesemia | 04/24/2017 | + + + Social History + +-------+ [...] recent travel history available. | + + Last Filed Vital Signs + + + [...] | | + + + + + Plan of Treatment + + + + + | Health Maintenance | Due Date | Last Done | Comments | + + + + + | Vaccine: | | | | | Dtap/Tdap/Td (1 - | 2 | | | | Tdap) | | | | + + + + + | Cervical Cancer | | | | | Screening (Pap) | 2 | | | + + + + + | Vaccine: Influenza | | | | | (#1) | 9 | | | + + + + + Results Not on filefrom Last 3 Months Insurance + +--------+ +--------+ +---------+------+ | Payer | Benefi | Subscriber | Effect | Phone | Address | Type | | | t Plan | ID | akbar | | | | | | / | | Dates | | | | | | Group | | | | | | + +--------+ +--------+ +---------+------+ | [facility] | PHP | [id number] | 04/30/19 | [phone] | | PPO | | PLAN | PERSON | | 16-Pre | 5 | | | | | [place] | | sent | | | | | | OPEN | | | | | | | | OPTION | | | | | | + +--------+ +--------+ +---------+------+ | [facility] | [facility] | [id number] | 04/30/19 | [phone] | | PPO | | PLAN | PERSON | | 16-Pre | 5 | | | | | [place] | | sent | | | | | | OPEN | | | | | | | | OPTION | | | | | | + +--------+ +--------+ +---------+------+ + +--------+ +--------+ + + | Guarantor Name | Accoun | Relation to | Date | Phone | Billing Address | | | t Type | Patient | of | | | | | | | | | | + +--------+ +--------+ + + | Candis Palm | John | Self | [birth year] | [address] | | [place]etha | al/Fam | | 1990 | [phone] | [place] [address] | | | brianna | | | 9 (Home) | | + +--------+ +--------+ + + Advance Directives + + + + + | Type | Date Recorded | Patient | Explanation | | | | Black Top Machine Operator | | + + + + + | Power of | | | | | Interpreter Translator | | | | + + + + + | Advance | 04/24/2017 | | | | Directive | 4:43 AM | | | + + + + + + + + + + | Code Status | Date | Date | Comments | | | Activated | Inactivated | | + + + + + | Full Code | 04/24/2017 | 04/26/2017 | | | | 1:17 AM | 11:44 PM | | + + + + +
--- OUTSIDE RECORDS SUMMARY | ~2019-05-06 | XMS | Clinical Summary ---
Demographics + + + | Address | [address] | | | [place] [address] | + + + | Home Phone | | + + + | Preferred Language | Unknown | + + + | Marital Status | Unknown | + + + | Jainism Affiliation | Unknown | + + + | Race | Unknown | + + + | Ethnic Group | Unknown | + + + Author + + + | Author | [facility] | | | and [place] | + + + | Organization | [facility] | | | and [place] | [...] Team Providers + +------+ + | Care Dietary Aide Teacher Name | Role | Phone | + [...] | | + +--------+ +--------+ +---------+------+ | [facility] | PHP | [id number] | 04/30/19 | [phone] | | PPO | | PLAN | PERSON | | 16-Pre | 5 | | | | | [place] | | sent | | | | | | OPEN | | | | | | | | OPTION | | | | | | + +--------+ +--------+ +---------+------+ | [facility] | [facility] | [id number] | 04/30/19 | [phone] | | PPO | | PLAN | [...] | 1990 | [phone] | [place] [address] | | | brianna | | | 9 (Home) | | + +--------+ +--------+ + + Advance Directives + + + + + | Type | Date Recorded | Patient | Explanation | | | | Stitch Separator | | + + + + + | Power of | | | | | Online Marketing Director | | | | + + + [...]
--- OUTSIDE RECORDS SUMMARY | ~2019-05-06 | XMS | Encounter Summary ---
Demographics + + + | Address | [address] | | | [place] [address] | + + + | Home Phone | | + + + | Preferred Language | Unknown | + + + | Marital Status | Unknown | + + + | Adventist Affiliation | Unknown | + + + | Race | Unknown | + + + | Ethnic Group | Unknown | + + + Author + + + | Author | [facility] | | | and [place] | + + + | Organization | [facility] | | | and [place] [...] Team Providers + +------+ + | Care Pet Walker Name | Role | Phone | + [...] + + | 04/23/ | Hospital | [facility] | Dennis De Jesus | Hypokalemia (Primary | | 2017 - | Encounter | [facility] | MD Hammad [address] | Dx); | | | | [address] | [address] | Hypomagnesemia; | | 04/26/ | | [place] [address] | [place] [address] | Hypocalcemia; | | 2017 | | [phone] | [phone] | Prolonged Q-T | | | | | | interval on ECG; | | | | | Deo Malik MD | Electrocardiogram | | | | | [address] | showing T wave | | | | | [place], [place] | abnormalities; | | | | | [address] | Electrolyte | | | | | | depletion; Seizure | | | | | Dalton Fairchild MD | ([facility]) | | | | | [address] | | | | | | [place], [place] | | | | | | [id number] | | | | | | | [...] Fairchild MD - 04/26/2017 5:50 PM PST [facility] DISCHARGE SUMMARY Pt. Name/Age/: Jules Palm 27 [...] with [employer] and get assistance applying for [place] [employer] aid. Or you may visit your local [facility] office in [place] for assistance. Contact information: [employer] [phone] Abdiel Owens DO. Specialty: Internal Medicine Why: call for appointment on returning to [place]. You should initially have blood work t wice weekly after discharge, decreasing as you are found to be more stable Contact information: [facility] [place] [address] RESULTS: Results for JULES [...] Creation Time: 04/25/2017 17:39 Procedure Orders: EEG [[id number]] ordered by Dalton Fairchild MD at 04/24/17 1227 Pre-procedure Diagnoses: Seizure (HCC) [R56.9] Post-procedure Diagnoses: Seizure (HCC) [R56.9] []Hide copied text []Hover for attribution information IN-PATIENT EEG REPORT Date: 04/25/2017 Time: 9:50 AM to 10:22 AM Ordering provider: Jules Palm Entry Writer: Beatriz Erazo History: Jules Palm is a [...] 9:18 AM Ordering provider: Dalton Fairchild MD Entry Writer: Beatriz Erazo History: Jules Palm is a [...] vomiting an d has been assessed at [facility] with colonoscopy to her cecum which was [...] her abdomen and pelvis on 02/08/2017 at [facility] in this record was reviewed and no adrenal masses were noted. The patient does have hypertension and was initiated on metoprolol 50 mg twice daily which has helped with blood pressure and heart rate and will need to be seen in follow-up when she returns to her primary physician in [place]. Blood pressures here been in the 90-100 [...] and this w ill [facility] [place] where she is staying with her mother. [...] advised to follow-up with her physician in [place] when she returns and records of this [...] signed by: Dalton Fairchild MD, 04/26/2017 17:51 [facility] Portions of this chart may have been created with [employer] voice recognition software. Occasi onal wrong-word or sound-alike substitutions may have occurred due to the inherent clifton itations of voice recognition software. Please read the chart carefully and recognize, using context, where these substitutions have occurred documented in this encounter Discharge Instructions Instructions Dalton Fairchild MD - 04/26/2017Go to [facility] in [place] on Sunday real saab for lab testing. Care management will contact her tomorrow with instructions. [address] testing if you have not heard from Dr. Fairchild contact him at [phone] for test r jazmine. This is a digital number and you need to enter your phone number and he'll call you back. AttachmentsThe following attachments cannot be sent through Care Everywhere.Magnesium Salts capsules or tablets, immediate release (Tunisian)Loperamide tablets or capsules (Tunisian)Met oprolol tablets (Tunisian)Potassium Citrate Extended-Release Tablets (Tunisian)documented in t his encounter Medications at Time [...] Fairchild MD - 04/25/2017 5:47 PM PST [facility] PM Hospitalist Progress Note Jules Tadeo Omeroderick [...] The patient reports having lower endoscopy at [facility]. Review of care everywhe re shows the [...] as outlined above. Dalton Fairchild 04/25/2017 17:[address] [facility] Portions of this chart may have been created with [employer] voice recognition software. Occasi onal wrong-word or sound-alike substitutions may have occurred due to the inherent clifton itations of voice recognition software. Please read the chart carefully and recognize, using context, where these substitutions have occurred eynaldo Rhoades [facility] - 04/24/2017 8:09 PM PST [...] and directions X Pharmacy list names: [facility] [place] when there [facility] [place] when here X [employer] insurance reported information [...] performed and electronically signed by Mira Boo, [facility] 19:52 Electronically signed by: Reynaldo Rhoades [facility] 04/24/2017 20:09 Dalton López MD - 04/24/2017 12:55 PM PSTFormatt ing of this note might be different from the original. [facility] PMG Hospitalist Progress Note Jules Palm is [...] The patient reports having lower endoscopy at [facility]. Review of care everywhe re shows the [...] as outlined above. Dalton Fairchild 04/24/2017 12:[address] [facility] Portions of this chart may have been created with [employer] voice recognition software. Occasi onal wrong-word or [...] to have l unch. Prior to this [facility] had notified this RN that HR had [...] | + +--------+ + + + | [facility] LAB REFERRAL | [...] + + documented in this encounter Results [facility] Lab Referral (04/26/2017 6:17 PM PST) + [...] | | us Lab Test | Ordered: [id number] | | LAB [facility] | | | [...] | REFERENCE LAB | | 01 - [facility] [place], [place] | [facility] | | [id number] Director: Trevor De La Vega MD, Phone: [phone] | | + + + + + + + + | Performing | Address | City/State/Zipcode | Phone Number | | Organization | | | | + + + + + | REFERENCE LAB | [address] | [place] [address] | [phone] | | [facility] | Drive [...] | | Urine | | | [facility] | | | | | | MEDICAL [...] St | [place] | [phone] | | [facility] | | [address] | | | - LABORATORY | | [...] | | | | | d by [facility]. It has not | | | | [...] | Performed at: 01 - [facility] [address] [place] [address], | REFERENCE LAB | | [place], [place] [id number] Enrollment Specialist: Trevor De La Vega MD, Phone: | [facility] | | [phone] | | + + + + + + + + | Performing | Address | City/State/Zipcode | Phone Number | | Organization | | | | + + + + + | REFERENCE LAB | [address] | [place] [address] | [phone] | | [facility] | [address] | | | + + + + + Urinalysis with Microscopic with Culture if Indicated (04/26/2017 7:31 AM PST) + + + + + + | Component | Value | Ref Range | Performed | Pathologist | | | | | At | Signature | + + + + + + | Color, | Yellow | Light Yellow, | [facility] | | | Urine | | Yellow, Straw | [facility] [...] - 1.030 | [facility] | | | [place] | | | [facility] | | [...] n, Urine | | mg/dL, Negative | [facility] | | | | [...] ST. | [address] | [place], [place] | [phone] | | [facility] | | [address] | | | - LABORATORY | | [...] | | | Positive FloraComment: | | [facility] | | | | Suggests contamination [...] St | [place] | [phone] | | [facility] | | [address] | | | - LABORATORY | | [...] | [address] | [place] | [phone] | | [facility] | | [address] | | | - LABORATORY | | | | + + + + + Magnesium (04/26/2017 5:46 AM PST) + +---------+ + + + | Component | Value | Ref Range | Performed | Pathologist | | | | | At | Signature | + +---------+ + + + | Magnesium | 1.4 (L) | 1.8 - 2.5 mg/dL | [facility] | | | | | | [facility]. [...] ST. | [address] | [place] | [phone] | | [facility] | | [address] | | | - LABORATORY | | [...] (L) | 7 - 18 mg/dL | [facility] | | | | | | [facility] | | | | | | MEDICAL | | | | | | CENTER - | | | | | | LABORATORY | | + + + + + + | Creatinine | 0.58 (L) | 0.60 - 1.30 | [facility] | | | | | mg/dL | [facility] | | | | | | MEDICAL | | | | | | CENTER - | | | | | | LABORATORY | | + + + + + + | eGFR if not | >60Comment: GLOMERULAR | >=60 | [facility] | | | | FILTRATION | mL/min/1.73m2 | [facility] | | | [place] | RATE,ESTIMATED | | MEDICAL | | | | mL/min/1.55d2Vkkp than | | CENTER - | | [...] + | [facility] | [address] | [place] | [phone] | | [facility] | | [address] | | | - LABORATORY | | [...] | | | | mmol/L | [facility] | | | | | | MEDICAL [...] 92 | 70 - 109 mg/dL | [facility] | | | | | | [facility] | | | | | | MEDICAL | | | | | | CENTER - | | | | | | LABORATORY | | + + + + + + | BUN | 3 (L) | 7 - 18 mg/dL | [facility] | | | | | | ST. [...] mL/min/1.73m2 | [facility] | | | [place] | RATE,ESTIMATED | | MEDICAL | | | | mL/min/1.59w4Zvhj than | | CENTER - | | [...] | | ine Ratio | | | [facility] | | | | [...] St | [place] | [phone] | | [facility] | | [address] | | | - LABORATORY | | [...] St | [place] | [phone] | | [facility] | | [address] | | | - LABORATORY | | | | + + + + + EEG (04/25/2017 5:39 PM PST) + + + | Narrative | Performed At | + + + | Ajay Serrano MD 04/25/2017 17:58 IN-PATIENT EEG REPORT | | | Date: 04/25/2017 Time: 9:50 AM to 10:22 AM Ordering | | | provider: Jules Palm Entry Writer: Beatriz Erazo | | | History: Jules [...] (L) | 7 - 18 mg/dL | [facility] | | | | | | [facility] | | | | | | MEDICAL | | | | | | CENTER - | | | | | | LABORATORY | | + + + + + + | Creatinine | 0.64 | 0.60 - 1.30 | [facility] | | | | | mg/dL | [facility] | | | | | | MEDICAL | | | | | | CENTER - | | | | | | LABORATORY | | + + + + + + | eGFR if not | >60Comment: GLOMERULAR | >=60 | [facility] | | | | FILTRATION | mL/min/1.73m2 | [facility] | | | [place] | RATE,ESTIMATED | | MEDICAL | | | | mL/min/1.25y9Xyji than | | CENTER - | | [...] St | [place] | [phone] | | [facility] | | [address] | | | - LABORATORY | | [...] | + + + + + | [facility] | [address] | [place] | [phone] | | [facility] | | [address] | | | - LABORATORY | | [...] + | Performed at: 01 - [facility] [address], | REFERENCE LAB | | [place], [place] [id number] Enrollment Specialist: Trevor De La Vega MD, Phone: | [facility] | | [phone] Performed at: 02 - [address] | | | [address] [id number] Enrollment Specialist: Bartolo Wilkes MD, | | | Phone: [phone] | | + + + + + + + + | Performing | Address | City/State/Zipcode | Phone Number | | Organization | | | | + + + + + | REFERENCE LAB | [address] | [place] [address] | [phone] | | [facility] | Drive [...] St | [place] | [phone] | | [facility] | | [address] | | | - LABORATORY | | [...] [address] | [place] | [phone] | | [facility] | | [address] | | | - LABORATORY | | [...] mL/min/1.73m2 | [facility] | | | [place] | RATE,ESTIMATED | | MEDICAL | | | | mL/min/1.64f3Ufth than | | CENTER - | | [...] + + | [facility] | [address] | [place] | [phone] | | [facility] | | [address] | | | - LABORATORY | | [...] + | [facility] | [address] | [place], [place] | [phone] | | [facility] | | [address] | | | - LABORATORY | | [...] | | | | EDUARDO REINOSO, JOVITA ([address]) | | | | | | on [...] + | [facility] | [address] | [place] | [phone] | | [facility] | | [address] | | | - LABORATORY | | [...] + | [facility] | [address] | [place], [place] | [phone] | | [facility] | | [address] | | | - LABORATORY | | [...] | | | Serum | | | [facility] | | [...] St | [place] | [phone] | | [facility] | | [address] | | | - LABORATORY | | [...] + | [facility] | [address] | [place] | [phone] | | [facility] | | [address] | | | - LABORATORY | | [...] + | [facility] | [address] | [place] | [phone] | | [facility] | | [address] | | | - LABORATORY | | | | + + + + + Lipase (04/23/2017 11:07 PM PST) + +-------+ + + + | Component | Value | Ref Range | Performed | Pathologist | | | | | At | Signature | + +-------+ + + + | Lipase | 32 | 0 - 60 U/L | [facility] | | | | | [...] St | [place] | [phone] | | [facility] | | [address] | | | - LABORATORY | | [...] | Critical Result called | mmol/L | [facility] | | | | to and read [...] (L) | 7 - 18 mg/dL | [facility] | | | | | | [facility] | | | | | | MEDICAL | | | | | | CENTER - | | | | | | LABORATORY | | + + + + + + | Creatinine | 0.82 | 0.60 - 1.30 | [facility] | | | | | mg/dL | [facility] | | | | | | MEDICAL | | | | | | CENTER - | | | | | | LABORATORY | | + + + + + + | eGFR if not | >60Comment: GLOMERULAR | >=60 | [facility] | | | | FILTRATION | mL/min/1.73m2 | [facility] | | | [place] | RATE,ESTIMATED | | MEDICAL | | | | mL/min/1.43b7Rfne than | | CENTER - | | [...] | | an appended report. | | [facility] | | | | These results [...] St | [place] | [phone] | | [facility] | | [address] | | | - LABORATORY | | [...] | Eosinophils | | K/uL | [facility] | | | | | | MEDICAL | | | | | | CENTER - | | | | | | LABORATORY | | + + + + + + | Absolute | 0.00 | 0.00 - 0.10 | [facility] | | | Basophils | | K/uL | [facility] | | | | | | [...] St | [place] | [phone] | | [facility] | | [address] | | | - LABORATORY | | [...] | | | 1 mg, Oral, ONCE, [facility] 04/26/17 | | 17 1:32 | | [...] | | | DAILY, First dose on [facility] 04/26/17 | | PM PST | | [...] | | | | | modification) on [facility] 04/26/17 at | | | | | [...] PST | | | | | ONCE, Sun04/23/17 at 2345, For 1 | | | [...] PST | | | | | ONCE, M[facility] 04/24/17 at 1315, For 1 | | [...] PST | | | | | ONCE, [facility] 04/24/17 at 2045, For 1 | | [...] PST | | | | | ONCE, [facility] 04/25/17 at 0745, For 1 | [...] PST | | | | | ONCE, [facility] 04/25/17 at 1200, For 1 | [...] PST | | | | | ONCE, [facility] 04/26/17 at 1615, For 1 | | [...] POM | | | PHARMACY CONSULT, Starting Tue | | | 04/24/17 at 2316, Pharmacy [...]
--- OUTSIDE RECORDS SUMMARY | ~2019-05-06 | XMS | Encounter Summary ---
Demographics + + + | Address | [address] | | | [place] [address] | + + + | Home Phone | | + + + | Preferred Language | Unknown | + + + | Marital Status | Unknown | + + + | Hinduism Affiliation | Unknown | + + + | Race | Unknown | + + + | Ethnic Group | Unknown | + + + Author + + + | Author | [facility] | | | and [place] | + + + | Organization | [facility] | | | and [place] | [...] Team Providers + +------+ + | [facility] Director Name | Role | Phone | + [...] + + | 04/23/ | Hospital | [facility] | Dennis De Jesus | Hypokalemia (Primary | | 2017 - | Encounter | [facility] | MD Hammad [address] | Dx); | | | | [address] [place] | [address] | Hypomagnesemia; | | 04/26/ | | [place] [address] | [place] [address] | Hypocalcemia; | | 2017 | | [phone] | [phone] | Prolonged Q-T | | | | | | interval on ECG; | | | | | Deo Malik MD | Electrocardiogram | | | | | [address] | showing T wave | | | | | [place], [place] | abnormalities; | | | | | [id number] | Electrolyte | | | | | | depletion; Seizure | | | | | Dalton Fairchild MD | ([facility]) | | | | | [address] | | | | | | [place], [place] | | | | | | [address] | | | | | | | [...] Fairchild MD - 04/26/2017 5:50 PM PST [facility] DISCHARGE SUMMARY Pt. Name/Age/: Jules Palm 27 [...] with [facility] and get assistance applying for [place] [employer] aid. Or you may visit your local [facility] office in [place] for assistance. Contact information: [facility] [employer] [phone] Abdiel Owens DO. Specialty: Internal Medicine Why: call for appointment on returning to [place]. You should initially have blood work t wice weekly after discharge, decreasing as you are found to be more stable Contact information: Formerly named [facility] [place] [address] RESULTS: Results for JULES PALM [...] Creation Time: 04/25/2017 17:39 Procedure Orders: EEG [[id number]] ordered by Dalton Fairchild MD at 04/24/17 1227 Pre-procedure Diagnoses: Seizure (HCC) [R56.9] Post-procedure Diagnoses: Seizure (HCC) [R56.9] []Hide copied text []Hover for attribution information IN-PATIENT EEG REPORT Date: 04/25/2017 Time: 9:50 AM to 10:22 AM Ordering provider: Jules Palm Folder And Notcher: Beatriz Erazo History: Jules Palm is a [...] 9:18 AM Ordering provider: Dalton Fairchild MD Folder And Notcher: Beatriz Erazo History: Jules Palm is a [...] vomiting an d has been assessed at [facility] with colonoscopy to her cecum [...] her abdomen and pelvis on 02/08/2017 at [facility] in this record was reviewed and no adrenal masses were noted. The patient does have hypertension and was initiated on metoprolol 50 mg twice daily which has helped with blood pressure and heart rate and will need to be seen in follow-up when she returns to her primary physician in [place]. Blood pressures here been in the 90-100 [...] and this w ill be arranged through [facility] in [place] where she is staying with her mother. [...] advised to follow-up with her physician in [place] when she returns and records of this [...] signed by: Dalton Fairchild MD, 04/26/2017 17:51 [facility] Portions of this chart may have been created with Weizoom voice recognition software. Occasi onal wrong-word or sound-alike substitutions may have occurred due to the inherent clifton itations of voice recognition software. Please read the chart carefully and recognize, using context, where these substitutions have occurred documented in this encounter Discharge Instructions Instructions Dalton Fairchild MD - 04/26/2017Go to [facility] in [place] on Sunday real saab for lab testing. Care management will contact her tomorrow with instructions. [address] testing if you have not heard from Dr. Fairchild contact him at [phone] for test r jazmine. This is a digital number and you need to enter your phone number and he'll call you back. AttachmentsThe following attachments cannot be sent through Care Everywhere.Magnesium Salts capsules or tablets, immediate release (South African)Loperamide tablets or capsules (South African)Met oprolol tablets (South African)Potassium Citrate Extended-Release Tablets (South African)documented in t his encounter Medications at Time [...] Fairchild MD - 04/25/2017 5:47 PM PST [facility] PM Hospitalist Progress Note Jules Tadeo [...] The patient reports having lower endoscopy at [facility]. Review of care everywhe re [...] as outlined above. Dalton Fairchild 04/25/2017 17:47 [facility] Portions of this chart may have been created with Weizoom voice recognition software. Occasi onal wrong-word or sound-alike substitutions may have occurred due to the inherent clifton itations of voice recognition software. Please read the chart carefully and recognize, using context, where these substitutions have occurred eynaldo Rhoades [facility] - 04/24/2017 8:09 PM PST PHARMACY SERVICES: [...] and directions X Pharmacy list names: [facility] [place] when there [facility] [place] when here X [employer] insurance reported information [...] performed and electronically signed by Mira Boo, Glue Spreader 19:52 Electronically signed by: Reynaldo Rhoades [facility] 04/24/2017 20:09 Dalton López MD - 04/24/2017 12:55 PM PSTFormatt ing of this note might be different from the original. [facility] PMG Hospitalist Progress Note Jules Palm [...] The patient reports having lower endoscopy at [facility]. Review of care everywhe re [...] as outlined above. Dalton Fairchild 04/24/2017 12:55 [facility] Portions of this chart may have been created with Weizoom voice recognition software. Occasi onal wrong-word or [...] to have l unch. Prior to this [employer] had notified this RN that HR had [...] | + +--------+ + + + | [facility] LAB REFERRAL | Routin | 04/26/2017 | [...] + documented in this encounter Results [facility] (04/26/2017 6:17 PM PST) + [...] | | us Lab Test | Ordered: [id number] | | LAB [facility] | | | [...] | REFERENCE LAB | | [facility] - [facility] [place], [place] | [facility] | | [id number] Director: Trevor De La Vega MD, Phone: [phone] | | + + + + + + + + | Performing | Address | City/State/Zipcode | Phone Number | | Organization | | | | + + + + + | REFERENCE LAB | [address] | [place] [address] | [phone] | | [facility] | Drive [...] | | Urine | | | [facility] | | | | | | MEDICAL [...] St | [place] | [phone] | | [facility] | | [address] | | | - LABORATORY | | [...] | | | | | d by [facility]. It has not | | | | [...] | Performed at: 01 - [facility] [address] [place] [address], | REFERENCE LAB | | [place], [place] [id number] Sandwich Hand: Trevor De La Vega MD, Phone: | [facility] | | [phone] | | + + + + + + + + | Performing | Address | City/State/Zipcode | Phone Number | | Organization | | | | + + + + + | REFERENCE LAB | [address] | [place] [address] | [phone] | | [facility] | Drive [...] - 1.030 | [facility] | | | [place] | | | [facility] | | [...] | | EPITHELIAL | | | [facility] | | | [facility] | | | [...] ST. | [address] | [place], [place] | [phone] | | [facility] | | [address] | | | - LABORATORY | | [...] St | [place] | [phone] | | [facility] | | [address] | | | - LABORATORY | | [...] St | [place] | [phone] | | [facility] | | [address] | | | - LABORATORY | | [...] ST. | [address] | [place] | [phone] | | [facility] | | [address] | | | - LABORATORY | | [...] (L) | 7 - 18 mg/dL | [facility] | | | | | | [facility] | | | | | | MEDICAL | | | | | | CENTER - | | | | | | LABORATORY | | + + + + + + | Creatinine | 0.58 (L) | 0.60 - 1.30 | [facility] | | | | | mg/dL | [facility] | | | | | | MEDICAL | | | | | | CENTER - | | | | | | LABORATORY | | + + + + + + | eGFR if not | >60Comment: GLOMERULAR | >=60 | [facility] | | | | FILTRATION | mL/min/1.73m2 | [facility] | | | SAMMARINESE | RATE,ESTIMATED | | MEDICAL | | | | mL/min/1.28l2Zxgm than | | CENTER - | | [...] + | [facility] | [address] | [place] | [phone] | | [facility] | | [address] | | | - LABORATORY | | [...] | | | | mmol/L | [facility] | | | | | | MEDICAL [...] mL/min/1.73m2 | [facility] | | | SAMMARINESE | RATE,ESTIMATED | | MEDICAL | | | | mL/min/1.47r6Laoq than | | CENTER - | | [...] St | [place] | [phone] | | [facility] | | [address] | | | - LABORATORY | | [...] St | [place] | [phone] | | [facility] | | [address] | | | - LABORATORY | | | | + + + + + EEG (04/25/2017 5:39 PM PST) + + + | Narrative | Performed At | + + + | Ajay Serrano MD 04/25/2017 17:58 IN-PATIENT EEG REPORT | | | Date: 04/25/2017 Time: 9:50 AM to 10:22 AM Ordering | | | provider: Jules Palm Folder And Notcher: Beatriz Erazo | | | History: Jules [...] (L) | 7 - 18 mg/dL | [facility] | | | | | | [facility] | | | | | | MEDICAL | | | | | | CENTER - | | | | | | LABORATORY | | + + + + + + | Creatinine | 0.64 | 0.60 - 1.30 | [facility] | | | | | mg/dL | [facility] | | | | | | MEDICAL | | | | | | CENTER - | | | | | | LABORATORY | | + + + + + + | eGFR if not | >60Comment: GLOMERULAR | >=60 | [facility] | | | | FILTRATION | mL/min/1.73m2 | [facility] | | | SAMMARINESE | RATE,ESTIMATED | | MEDICAL | | | | mL/min/1.69x1Dcre than | | CENTER - | | [...] St | [place] | [phone] | | [facility] | | [address] | | | - LABORATORY | | [...] [address] | [place] | [phone] | | [facility] | | [address] | | | - LABORATORY | | [...] + | Performed at: 01 - [facility] [address], | REFERENCE LAB | | [place], [place] [id number] Sandwich Hand: Trevor De La Vega MD, Phone: | [facility] | | [phone] Performed at: 02 - [address] | | | [address] [id number] Sandwich Hand: Bartolo Wilkes MD, | | | Phone: [phone] | | + + + + + + + + | Performing | Address | City/State/Zipcode | Phone Number | | Organization | | | | + + + + + | REFERENCE LAB | [address] | [place] [address] | [phone] | | [facility] | Drive [...] St | [place] | [phone] | | [facility] | | [address] | | | - LABORATORY | | [...] [address] | [place] | [phone] | | [facility] | | [address] | | | - LABORATORY | | [...] | | | | mmol/L | [facility] | | | | | | MEDICAL [...] mL/min/1.73m2 | [facility] | | | SAMMARINESE | RATE,ESTIMATED | | MEDICAL | | | | mL/min/1.11q2Lpqq than | | CENTER - | | [...] St | [place] | [phone] | | [facility] | | [address] | | | - LABORATORY | | [...] + | [facility] | [address] | [place], [place] | [phone] | | [facility] | | [address] | | | - LABORATORY | | [...] | | | | EDUARDO REINOSO, JOVITA ([address]) | | | | | | on [...] + | [facility] | [address] | [place] | [phone] | | [facility] | | [address] | | | - LABORATORY | | [...] + | [facility] | [address] | [place], [place] | [phone] | | [facility] | | [address] | | | - LABORATORY | | [...] + + | [facility] | [address] | [place] | [phone] | | [facility] | | [address] | | | - LABORATORY | | [...] + | [facility] | [address] | [place] | [phone] | | [facility] | | [address] | | | - LABORATORY | | [...] + | [facility] | [address] | [place] | [phone] | | [facility] | | [address] | | | - LABORATORY | | [...] St | [place] | [phone] | | [facility] | | [address] | | | - LABORATORY | | [...] | 0.82 | 0.60 - 1.30 | [facility] | | | | | mg/dL | [facility] | | | | | | MEDICAL | | | | | | CENTER - | | | | | | LABORATORY | | + + + + + + | eGFR if not | >60Comment: GLOMERULAR | >=60 | [facility] | | | | FILTRATION | mL/min/1.73m2 | [facility] | | | SAMMARINESE | RATE,ESTIMATED | | MEDICAL | | | | mL/min/1.69j4Xtzn than | | CENTER - | | [...] St | [place] | [phone] | | [facility] | | [address] | | | - LABORATORY | | [...] St | [place] | [phone] | | [facility] | | [address] | | | - LABORATORY | | [...] | | | 1 mg, Oral, ONCE, [facility] 04/26/17 | | 17 1:32 | [...] | | | DAILY, First dose on [facility] 04/26/17 | | PM PST | [...] | | | | | modification) on [facility] 04/26/17 at | | | | [...] PST | | | | | ONCE, [facility] 04/24/17 at 2045, For 1 | | [...] PST | | | | | ONCE, [facility] 04/26/17 at 1615, For 1 | [...]
[~2019-05-06 13:08] MED LIST changes: +CHLORHEXIDINE473 ML MT; +ELEMENTAL CALC600 MG PO; +OMEPRAZOLE20 MG PO; +ONDANSETRON ODT4 MG SL; +VITAMIN D325 MC1 PO
== END 2019-05-06 16:44 | disposition home or self-care (01) ==
LOC: ED 13:08
DX: R56.9 Unspecified convulsions (principal); E83.42 Hypomagnesemia; F17.200 Nicotine dependence, unspecified, uncomplicated; Z79.899 Other long term (current) drug therapy
CPT/HCPCS: 80053; 83735; 85025; 96374; 99285-25; J3475; J7060